=== PATIENT | female | born 1955 | race Caucasian/White ===

== ENCOUNTER 2017-05-20 15:04 | Inpatient (IN) | payer OTHER ==
[~2017-05-20] VITALS: Ht 165.1 cm; Wt 72.9 kg
[2017-05-20] MEDS ORDERED: ASPIRIN 325 MG TAB PO STA (16:26)
[2017-05-20 16:38] LABS: BASOPHIL # 0.1 10^3/ul (0.0-0.1); BASOPHILS % 0.7 % (0.0-2.0); EOSINOPHILS # 0.4 10^3/ul (0.0-0.5); EOSINOPHILS % 2.8 % (0.0-7.0); HEMATOCRIT 36.4 % (37.0-47.0); HEMOGLOBIN 12.3 g/dl (12.0-16.0); LYMPHOCYTES # 1.7 10^3/ul (0.8-2.9); LYMPHOCYTES % 12.9 % (15.0-51.0); MEAN CORPUSCULAR HEMOGLOBIN 32.6 pg (29.0-33.0); MEAN CORPUSCULAR HGB CONC 33.8 g/dl (32.0-37.0); MEAN CORPUSCULAR VOLUME 96.6 fl (82.0-101.0); MEAN PLATELET VOLUME 8.1 fl (7.4-10.4); MONOCYTE # 0.9 10^3/ul (0.3-0.9); MONOCYTES % 6.7 % (0.0-11.0); NEUTROPHIL # 10.3 10^3/ul (1.6-7.5); NEUTROPHILS % 76.6 % (39.0-77.0); PLATELET COUNT 496 10^3/UL (140-415); RED BLOOD COUNT 3.77 10^6/ul (4.20-5.40); WHITE BLOOD COUNT 13.4 10^3/ul (4.8-10.8)
--- NOTE | 2017-05-20 16:42 | RADRPT ---
PROCEDURE: XR Chest. CLINICAL INDICATION: Chest pain . TECHNIQUE: Single frontal chest x-ray. COMPARISON: None. FINDINGS: The lungs are clear of acute infiltrates, edema, effusions, or masses. Calcific atherosclerosis of t he aorta is present.. The cardiomediastinal silhouette is unremarkable. The osseous structures are intact. IMPRESSION: No acute cardiopulmonary disease. RPTAT: GG .Peng Ford MD, MD Date Time Electronically viewed and signed by .Peng Ford MD, on 05/20/2017 16:42 .L/
[2017-05-20] MEDS ORDERED: ONDANSETRON 4 MG INJ ONE (16:54)
[2017-05-20] MEDS ORDERED: ONDANSETRON 4 MG INJ IV STA ×2 (16:56→17:29)
[2017-05-20 16:59] LABS: ANION GAP 16 (8-16); BLOOD UREA NITROGEN 23 mg/dl (7-20); CALCIUM 10.3 mg/dl (8.4-10.2); CARBON DIOXIDE 23 mmol/L (21-31); CHLORIDE 103 mmol/L (97-110); CREATININE 0.85 mg/dl (0.44-1.00); GLUCOSE 85 mg/dl (70-220); POTASSIUM 4.4 mmol/L (3.5-5.1); SODIUM 138 mmol/L (135-144)
[2017-05-20 17:11] LABS: B-TYPE NATRIURETIC PEPTIDE 81 PG/ML (0-125)
[2017-05-20] MEDS ORDERED: NITROGLYCERIN 2% 1 GM OINT PKT TD STA (17:29)
[2017-05-20] MEDS ORDERED: HYDROmorphONE 1 MG/ML SYG IV STA (17:29)
[2017-05-20 17:31] LABS: TROPONIN-I < 0.012 ng/ml (0.00-0.12)
--- NOTE | 2017-05-20 19:36 | ERA ---
ER Documentation Chief Complaint Date/Time DATE: 05/20/17 TIME: 19:33 Chief Complaint Complains of chest pain radiates to the back HPI This is a 62-year-old is complaining of chest pain off and on for the past week that seems to be getting worse and more frequent and strong. Patient states she is having substernal chest pressure that radiates to the back that causes nausea and vomiting. No shortness of breath but does have palpitations. No syncope patient states she thinks she has high cholesterol but no diabetes or blood pressure problems. Currently her pain is mild. ROS All systems reviewed and are negative except as per history of present illness. Allergies Allergies: Coded Allergies: No Known Allergy (Unverified , 05/20/17) PMhx/Soc Medical and Surgical Hx: pt denies Medical Hx History of Surgery: Yes (left breast lumpectomy) Anesthesia Reaction: No Hx Alcohol Use: No Hx Substance Use: No Hx Tobacco Use: Yes (6cig/day) Smoking Status: Light tobacco smoker FmHx Family History: No coronary disease Physical Exam Vitals Vital Signs Date Time Temp Pulse Resp B/P Pulse Ox O2 Delivery O2 Flow Rate FiO2 05/20/17 16:29 98.3 87 20 145/82 99 Room Air 05/20/17 16:29 Nasal Cannula 2 05/20/17 15:07 98.3 110 20 138/64 96 Physical Exam Const: Well-developed, well-nourished Head: Atraumatic, normocephalic Eyes: Normal Conjunctiva, PERRLA, EOMI, normal sclera, no nystagmus ENT: Normal External Ears, Nose and Mouth, moist mucus membranes. Neck: Full range of motion. No meningismus, no lymphadenopathy. Resp: Clear to auscultation bilaterally, no wheezing, rhonchi, rales Cardio: Regular rate and rhythm, no murmurs, S1 S2 present Abd: Soft, non tender x 4, non distended. Normal bowel sounds, no guarding or rebound, no pulsitile abdominal masses or bruits Skin: No petechiae or rashes, no ecchymosis , no maculopapular rash Back: No midline or flank tenderness Ext: No cyanosis, or edema, FROM x 4, normal inspection, neurovascularly intact x 4 Neur: Awake and alert, STR 5/5 x 4, sensation intact x 4, no focal findings, cerebellum intact Psych: Normal Mood and Affect Result Diagram: 05/20/17 1627 05/20/17 1627 Results 24 hrs Laboratory Tests Test 05/20/17 16:27 White Blood Count 13.410^3/ul Red Blood Count 3.7710^6/ul Hemoglobin 12.3g/dl Hematocrit 36.4% Mean Corpuscular Volume 96.6fl Mean Corpuscular Hemoglobin 32.6pg Mean Corpuscular Hemoglobin Concent 33.8g/dl Red Cell Distribution Width 13.0% Platelet Count 43955^3/UL Mean Platelet Volume 8.1fl Neutrophils % 76.6% Lymphocytes % 12.9% Monocytes % 6.7% Eosinophils % 2.8% Basophils % 0.7% Nucleated Red Blood Cells % 0.0/100WBC Neutrophils # 10.310^3/ul Lymphocytes # 1.710^3/ul Monocytes # 0.910^3/ul Eosinophils # 0.410^3/ul Basophils # 0.110^3/ul Nucleated Red Blood Cells # 0.010^3/ul Sodium Level 138mmol/L Potassium Level 4.4mmol/L Chloride Level 103mmol/L Carbon Dioxide Level 23mmol/L Anion Gap 16 Blood Urea Nitrogen 23mg/dl Creatinine 0.85mg/dl Glucose Level 85mg/dl Calcium Level 10.3mg/dl Troponin I < 0.012ng/ml B-Type Natriuretic Peptide 81PG/ML Current Medications Medications (Trade) Dose Ordered Sig/Sarah Route PRN Reason Start Time Stop Time Status Last Admin Dose Admin Aspirin (Aspirin) 325 mg ONCE STAT PO 05/20/17 16:26 05/20/17 16:27 DC Ondansetron HCl (Zofran Inj) 4 mg STK-MED ONCE .ROUTE 05/20/17 16:54 05/20/17 16:55 DC Ondansetron HCl (Zofran Inj) 4 mg ONCE STAT IV 05/20/17 16:56 05/20/17 16:58 DC 05/20/17 17:07 Nitroglycerin (Nitroglycerin 2% Oint) 1 inch ONCE STAT TD 05/20/17 17:29 05/20/17 17:30 DC 05/20/17 17:47 Hydromorphone HCl (Dilaudid) 1 mg ONCE STAT IV 05/20/17 17:29 05/20/17 17:30 DC 05/20/17 17:45 Ondansetron HCl (Zofran Inj) 4 mg ONCE STAT IV 05/20/17 17:29 05/20/17 17:30 DC 05/20/17 17:54 Procedures/MDM EKG: Rate/Rhythm: Sinus tachycardia QRS, ST, QT: NORMAL [place], QRS, QT] Impression: Sinus tachycardia PROCEDURE: XR Chest. CLINICAL INDICATION: Chest pain . TECHNIQUE: Single frontal chest x-ray. COMPARISON: None. FINDINGS: The lungs are clear of acute infiltrates, edema, effusions, or masses. Calcific atherosclerosis of the aorta is present.. The cardiomediastinal silhouette is unremarkable. The osseous structures are intact. IMPRESSION: No acute cardiopulmonary disease. RPTAT: GG .Peng Ford MD, Date Time Electronically viewed and signed by .Peng Ford MD, on 05/20/2017 16:42 .L/ CC: ARELI PADILLA DO Patient's symptoms are concerning for cardiac cause will require inpatient workup and continuous monitoring. Further w/u for ischemia, arrhythmia, PE or dissection will be deferred to the inpatient team. Accepting Care Team: Current data and ongoing care discussed. Time: Time of admission Primary Provider: [XOXOXO] Consulting: [XOXOXO] Outstanding Data: none Departure Diagnosis: Primary Impression: Chest pain Qualified Code: R07.9 - Chest pain, unspecified type Condition: Stable SANDER CASTILLO DO May 20, 2017 19:35
[2017-05-20] MEDS ORDERED: ACETAMINOPHEN 325 MG TAB PO PRN (20:30)
[2017-05-20] MEDS ORDERED: ONDANSETRON 4 MG INJ IV PRN (20:30)
[2017-05-20 21:04] VITALS: TEMP 98.1
[2017-05-20 21:42] VITALS: BP 138/70; PULSE 81; RESP 19
[2017-05-20 21:49] VITALS: Ht 165.1 cm; Wt 72.9 kg
[2017-05-20 22:02] VITALS: PULSE 67
[2017-05-20] MEDS: FAMOTIDINE 20 MG INJ IV SCH ×2 (22:30→22:52)
[2017-05-20] MEDS: ONDANSETRON 4 MG INJ IV PRN (22:40)
[2017-05-20] MEDS: HYDROmorphONE 0.5 MG/0.5 ML SYG IV PRN (22:43)
[2017-05-20] MEDS ORDERED: NITROGLYCERIN (SL) 0.4 MG TAB ONE (22:44)
[2017-05-20] MEDS: NITROGLYCERIN (SL) 0.4 MG TAB SL PRN ×2 (22:51→23:01)
[2017-05-20 22:52] VITALS: BP 142/72; PULSE 77
[2017-05-20 22:56] LABS: CREATINE KINASE 57 IU/L (23-200)
[2017-05-20 23:01] VITALS: BP 130/69
[2017-05-20 23:09] LABS: CK-MB 0.72 ng/ml (0.0-2.4)
[2017-05-20 23:10] LABS: TROPONIN-I < 0.012 ng/ml (0.00-0.12)
[2017-05-20 23:11] VITALS: BP 122/69; PULSE 94; RESP 20
[2017-05-21] VITALS (11 sets, daily range): BP systolic 102–138; BP diastolic 52–60; PULSE 62–82; RESP 17–19
[2017-05-21] MEDS ORDERED: METOPROLOL 25 MG TAB GTB SCH (00:30)
[2017-05-21] MEDS: HYDROmorphONE 0.5 MG/0.5 ML SYG IV PRN ×2 (04:05→19:52)
[2017-05-21] MEDS: FAMOTIDINE 20 MG INJ IV SCH ×2 (04:06→09:11)
[2017-05-21] MEDS: ONDANSETRON 4 MG INJ IV PRN ×2 (04:43→19:52)
--- NOTE | 2017-05-21 07:26 | HP ---
Date/Time of Note Date/Time of Note DATE: 05/21/17 TIME: 07:18 Assessment/Plan VTE Prophylaxis VTE Prophylaxis Intervention: heparin Lines/Catheters IV Catheter Type (from [facility]): Saline Lock Urinary Cath still in place: No Assessment/Plan Assessment/Plan 1. Chest pain, rule out ACS -Continue telemetry monitoring -Supplemental oxygen, aspirin, beta-rae with as needed nitro and morphine -Trend troponin -2D echo and cardiology consult 2. Vomiting -Will order KUB -Antiemetics -Additional workup as needed 3. Leukocytosis: Likely reactive -Will check urinalysis -Check a.m. lab 4. History of PUD -PPI HPI/ROS Admit Date/Time Admit Date/Time May 20, 2017 at 20:10 Hx of Present Illness This is a 62-year-old female with a history of depression, PUD, chronic chest pain and lumpectomy who presented to the emergency department complaining of chest pain 1 week. Pain is mainly localized in the mid chest with radiation to her back. She reported associated nonbilious nonbloody vomiting. Denied shortness of breath, fever chills or diaphoresis. She said that she has been using heat pack to her chest to help with the pain and as a result she has developed some blistering to her breasts. As I was leaving the room, she said she had pessary for bladder prolapse 14 years ago and now, she feels her "bladder moving". She said at times, it has been difficult to urinate unless she "moves her bladder by hand". When she presented to the ER, she was tachycardic with heart rate of 110 otherwise the rest of the vitals were stable. EKG was no ST-T wave abnormality and the first troponin is negative. Labs shows a WBC of 13.4 calcium of 10.4 otherwise CBC and a CMP within acceptable range. Chest x-ray with no active cardiopulmonary disease. PMH/Family/Social Social History Smoking Status: Light tobacco smoker Exam/Review of Systems Vital Signs Vitals Vital Signs Date Time Temp Pulse Resp B/P Pulse Ox O2 Delivery O2 Flow Rate FiO2 05/21/17 04:07 70 05/21/17 03:59 98.1 19 113/55 97 05/20/17 23:11 Nasal Cannula 2.0 Intake and Output 05/20/17 05/20/17 05/21/17 15:00 23:00 07:00 Intake Total 200 ml Balance 200 ml Exam Constitutional: alert, oriented, well developed Head: atraumatic, normocephalic Eyes: EOMI, PERRL Respiratory: clear to auscultation, normal air movement Cardiovascular: nl pulses, regular rate and rhythm Extremities: normal pulses Labs Result Diagram: 05/20/17 1627 05/20/17 1627 Medications Medications Current Medications Ondansetron HCl (Zofran Inj) 4 mg Q6H PRN IV NAUSEA AND/OR VOMITING Last administered on 05/21/17 04:43; Admin Dose 4 MG; Start 05/20/17 at 22:30 Hydromorphone HCl (Dilaudid) 0.5 mg Q4H PRN IV PAIN Last administered on 04:05; Admin Dose 0.5 MG; Start 05/20/17 at 22:30 Famotidine (Pepcid Iv) 20 mg BID IV Last administered on 05/21/17 04:06; Admin Dose 20 MG; Start 05/20/17 at 22:30 Nitroglycerin (Nitroglycerin (Sl Tab) 0.4 Mg) 1 tab Q5M PRN SL ANGINA Last administered on 05/20/17 23:01; Admin Dose 1 TAB; Start 05/20/17 at 23:00 Enoxaparin Sodium (Lovenox) 40 mg DAILY SC ; Start 05/21/17 at 09:00 Aspirin (Aspirin) 81 mg DAILY PO ; Start 05/21/17 at 09:00 Influenza Virus Vaccine (Fluzone) 0.5 ml ONCE ONCE IM* ; Start 05/22/17 at 09: 00; Stop 05/22/17 at 09:01 Metoprolol Tartrate (Lopressor) 25 mg BID PO ; Start 05/21/17 at 09:00 MUNDO KAPLAN MD May 21, 2017 07:26
[2017-05-21 08:19] LABS: BASOPHIL # 0.1 10^3/ul (0.0-0.1); BASOPHILS % 0.6 % (0.0-2.0); EOSINOPHILS # 0.4 10^3/ul (0.0-0.5); EOSINOPHILS % 3.4 % (0.0-7.0); HEMATOCRIT 35.6 % (37.0-47.0); HEMOGLOBIN 11.4 g/dl (12.0-16.0); LYMPHOCYTES # 1.6 10^3/ul (0.8-2.9); MEAN CORPUSCULAR HEMOGLOBIN 31.8 pg (29.0-33.0); MEAN CORPUSCULAR VOLUME 99.4 fl (82.0-101.0); MEAN PLATELET VOLUME 8.3 fl (7.4-10.4); MONOCYTE # 0.8 10^3/ul (0.3-0.9); MONOCYTES % 7.2 % (0.0-11.0); NEUTROPHIL # 8.3 10^3/ul (1.6-7.5); NEUTROPHILS % 74.4 % (39.0-77.0); PLATELET COUNT 437 10^3/UL (140-415); RED BLOOD COUNT 3.58 10^6/ul (4.20-5.40); RED CELL DISTRIBUTION WIDTH 12.9 % (11.5-14.5); WHITE BLOOD COUNT 11.1 10^3/ul (4.8-10.8)
[2017-05-21 08:48] LABS: CREATINE KINASE 46 IU/L (23-200)
[2017-05-21 08:55] LABS: ALBUMIN 3.8 g/dl (3.3-4.9); ALBUMIN/GLOBULIN RATIO 1.05; CALCIUM 9.8 mg/dl (8.4-10.2); CHOL/HDL RATIO 5.9 RATIO; CK-MB 0.69 ng/ml (0.0-2.4); CREATININE 0.76 mg/dl (0.44-1.00); MAGNESIUM 1.7 mg/dl (1.7-2.5); PHOSPHORUS 4.2 mg/dl (2.5-4.9); POTASSIUM 4.3 mmol/L (3.5-5.1); TOTAL PROTEIN 7.4 g/dl (6.1-8.1)
[2017-05-21 08:57] LABS: TROPONIN-I < 0.012 ng/ml (0.00-0.12)
[2017-05-21] MEDS ORDERED: BARIUM SULF 2% 450 ML BTL (BERRY SMOOTHIE) PO ONE (09:00)
[2017-05-21] MEDS: METOPROLOL 25 MG TAB PO SCH ×2 (09:10→20:17)
[2017-05-21] MEDS: ENOXAPARIN 40 MG/0.4 ML SYG SC SCH (09:12)
[2017-05-21] MEDS: ASPIRIN 81 MG TAB PO SCH (09:13)
[2017-05-21 09:15] LABS: THYROID STIMULATING HORMONE 1.9 MIU/L (0.465-4.680)
[2017-05-21 13:41] LABS: ADD UMIC YES; UR ASCORBIC ACID NEGATIVE (NEGATIVE); UR BACTERIA FEW /HPF (NONE SEEN); UR BILIRUBIN (Dip) NEGATIVE (NEGATIVE); UR BLOOD (Dip) 2+ mg/dL (NEGATIVE); UR CLARITY CLOUDY (CLEAR); UR COLOR YELLOW (YELLOW); UR GLUCOSE (Dip) NEGATIVE (NEGATIVE); UR KETONES (Dip) NEGATIVE (NEGATIVE); UR LEUKOCYTE ESTERASE (Dip) 3+ Leu/ul (NEGATIVE); UR NITRITE (Dip) NEGATIVE (NEGATIVE); UR RBC 0 /HPF (0-5); UR SPECIFIC GRAVITY (Dip) 1.013 (1.003-1.030); UR SQUAMOUS EPITHELIAL CELL FEW /HPF (FEW); UR TOTAL PROTEIN (Dip) NEGATIVE (NEGATIVE); UR UROBILINOGEN (Dip) NEGATIVE (NEGATIVE)
--- NOTE | 2017-05-21 14:00 | CONS ---
Date/Time of Note Date/Time of Note DATE: 05/21/17 TIME: 13:59 Assessment/Plan Assessment/Plan Additional Assessment/Plan Stress test tomorrow Full note dictated # [id number] thank you Consultation Date/Type/Reason Admit Date/Time May 21, 2017 at 11:05 Initial Consult Date Exam/Review of Systems Vital Signs Vitals Vital Signs Date Time Temp Pulse Resp B/P Pulse Ox O2 Delivery O2 Flow Rate FiO2 05/21/17 12:00 82 05/21/17 11:44 97.2 17 126/60 98 05/21/17 08:14 Nasal Cannula 2.0 Intake and Output 05/20/17 05/20/17 05/21/17 15:00 23:00 07:00 Intake Total 200 ml Balance 200 ml Results Result Diagram: 05/21/17 0704 05/21/17 0704 Results 24 hrs Laboratory Tests Test 05/20/17 16:27 05/20/17 22:17 05/21/17 07:04 05/21/17 12:20 White Blood Count 13.4 H 11.1 H Red Blood Count 3.77 L 3.58 L Hemoglobin 12.3 11.4 L Hematocrit 36.4 L 35.6 L Mean Corpuscular Volume 96.6 99.4 Mean Corpuscular Hemoglobin 32.6 31.8 Mean Corpuscular Hemoglobin Concent 33.8 32.0 Red Cell Distribution Width 13.0 12.9 Platelet Count 496 H 437 H Mean Platelet Volume 8.1 8.3 Neutrophils % 76.6 74.4 Lymphocytes % 12.9 L 14.0 L Monocytes % 6.7 7.2 Eosinophils % 2.8 3.4 Basophils % 0.7 0.6 Nucleated Red Blood Cells % 0.0 0.0 Neutrophils # 10.3 H 8.3 H Lymphocytes # 1.7 1.6 Monocytes # 0.9 0.8 Eosinophils # 0.4 0.4 Basophils # 0.1 0.1 Nucleated Red Blood Cells # 0.0 0.0 Sodium Level 138 132 L Potassium Level 4.4 4.3 Chloride Level 103 105 Carbon Dioxide Level 23 27 Anion Gap 16 4 #L Blood Urea Nitrogen 23 H 20 Creatinine 0.85 0.76 Glucose Level 85 85 Calcium Level 10.3 H 9.8 Troponin I < 0.012 < 0.012 < 0.012 B-Type Natriuretic Peptide 81 Creatine Kinase 57 46 Creatine Kinase Index 1.3 1.5 Creatinine Kinase MB (Mass) 0.72 0.69 Hemoglobin A1c 5.4 Phosphorus Level 4.2 Magnesium Level 1.7 Total Bilirubin 0.0 L Direct Bilirubin 0.00 Indirect Bilirubin 0.0 Aspartate Amino Transf (AST/SGOT) 19 Alanine Aminotransferase (ALT/SGPT) 23 Alkaline Phosphatase 85 Total Protein 7.4 Albumin 3.8 Globulin 3.60 H Albumin/Globulin Ratio 1.05 Triglycerides Level 194 H Cholesterol Level 185 LDL Cholesterol, Calculated 115 HDL Cholesterol 31 L Cholesterol/HDL Ratio 5.9 Thyroid Stimulating Hormone (TSH) 1.900 Urine Color YELLOW Urine Clarity CLOUDY A Urine pH 5.0 Urine Specific Martin 1.013 Urine Ketones NEGATIVE Urine Nitrite NEGATIVE Urine Bilirubin NEGATIVE Urine Urobilinogen NEGATIVE Urine Leukocyte Esterase 3+ H Urine Microscopic RBC 0 Urine Microscopic WBC > 182 H Urine Squamous Epithelial Cells FEW Urine Bacteria FEW A Urine Hemoglobin 2+ H Urine Glucose NEGATIVE Urine Total Protein NEGATIVE Medications Medications Current Medications Ondansetron HCl (Zofran Inj) 4 mg Q6H PRN IV NAUSEA AND/OR VOMITING Last administered on 05/21/17 04:43; Admin Dose 4 MG; Start 05/20/17 at 22:30 Hydromorphone HCl (Dilaudid) 0.5 mg Q4H PRN IV PAIN Last administered on 04:05; Admin Dose 0.5 MG; Start 05/20/17 at 22:30 Famotidine (Pepcid Iv) 20 mg BID IV Last administered on 05/21/17 09:11; Admin Dose 20 MG; Start 05/20/17 at 22:30 Nitroglycerin (Nitroglycerin (Sl Tab) 0.4 Mg) 1 tab Q5M PRN SL ANGINA Last administered on 05/20/17 23:01; Admin Dose 1 TAB; Start 05/20/17 at 23:00 Enoxaparin Sodium (Lovenox) 40 mg DAILY SC Last administered on 05/21/17 09: 12; Admin Dose 40 MG; Start 05/21/17 at 09:00 Aspirin (Aspirin) 81 mg DAILY PO Last administered on 05/21/17 09:13; Admin Dose 81 MG; Start 05/21/17 at 09:00 Influenza Virus Vaccine (Fluzone) 0.5 ml ONCE ONCE IM* ; Start 05/22/17 at 09: 00; Stop 05/22/17 at 09:01 Metoprolol Tartrate (Lopressor) 25 mg BID PO Last administered on 05/21/17t 09 :10; Admin Dose 25 MG; Start 05/21/17 at 09:00 Magnesium Oxide (Mag-Ox 400) 400 mg BID PO ; Start 05/21/17 at 15:00 LORRAINE MULLIGAN MD May 21, 2017 14:00
[2017-05-21] MEDS: MAGNESIUM OXIDE 400 MG TAB PO SCH ×2 (15:00→20:07)
[2017-05-21] MEDS ORDERED: SOD CHLORIDE 0.9% 100 ML ONE (16:58)
[2017-05-21] MEDS ORDERED: IODIXANOL LOCM 100 ML BTL ONE (16:58)
--- NOTE | 2017-05-21 18:00 | RADRPT ---
PROCEDURE: CT chest angiography. CLINICAL INDICATION: Chest pain. Possible aortic dissection. TECHNIQUE: CT angiography of the chest was performed after the uneventful intravenous administratio n of 90 cc of Visipaque 320. Coronal and sagittal reformations were performed. 3-D/multiplanar ref ormations were performed by the technologist and an independent workstation. The total exam CTDI = 2 5.35, 10.10 mGy and the DLP equals 400.29 mGy-cm. One or more of the following dose reduction techniques were used: - Automated exposure control. - Adjustment of the mA and/or kV according to patient size. - Use of iterative reconstruction technique. COMPARISON: Chest x-ray dated 05/20/2017. VASCULAR FINDINGS: There is atherosclerotic disease of the aorta with scattered areas of intramural hematoma. There is no aortic aneurysm or dissection. There is a normal three-vessel configuration o f the aortic arch. The great vessels and visualized portions of the subclavian, vertebral, and commo n carotid arteries are widely patent. There are multivessel coronary artery calcifications. There is acute angulation of the celiac artery takeoff with associated high-grade narrowing and post stenoti c dilatation of the proximal vessel, suggestive of a median arcuate ligament. The remaining visualiz ed portions of the celiac artery and its branch vessels are widely patent. The visualized portions o f the SMA and single bilateral renal arteries are also widely patent. There are no emboli through th e level of the subsegmental pulmonary arteries. NONVASCULAR FINDINGS: Lungs, pleura, airways, and thoracic inlet: There is mild centrilobular and paraseptal emphysema wi thin the lungs. There is bibasilar subsegmental atelectasis versus scarring without focal consolidat ion, effusion, or pneumothorax. There are no concerning pulmonary nodules or masses. The tracheobron chial tree is patent and normal in course and caliber. Mediastinum and lymphatics: The heart is normal in size without pericardial thickening or effusion. There is no axillary, hilar, or mediastinal adenopathy. Visualized upper abdomen: There is a benign 1.7 cm right adrenal adenoma. There is a focal defect of the gastric mucosa along the greater curvature of the gastric body and associated mild outpouching measuring approximate 2.5 x 1.8 cm with surrounding inflammatory change in the adjacent mesenteric f at, suspicious for a penetrating ulcer. There is diverticulosis of the visualized colon. Musculoskeletal system and soft tissues: There is mild to moderate multilevel degenerative spondylo sis. There are no concerning osseous lesions. The soft tissues are unremarkable. IMPRESSION: 1. Atherosclerotic changes of the aorta with scattered intramural hematoma, but no aortic aneurysm or dissection. 2. Acute angulation of the celiac artery takeoff with associated high-grade narrowing and post sten otic dilatation of the proximal vessel, suggestive of a median arcuate ligament. 3. Focal defect of the gastric mucosa along the greater curvature of the gastric body with associat ed mild outpouching and inflammatory change in the adjacent mesenteric fat, suspicious for a penetra ting ulcer. Upper endoscopy versus upper GI series is recommended for further evaluation. 4. Mild centrilobular and paraseptal emphysema. 5. Multivessel coronary artery calcifications. 6. Benign 1.7 cm right adrenal adenoma. 7. Colonic diverticulosis. These findings discussed with the patient's nurse Hallie Hayes at 1757 hours on 05/21/2017. RPTAT: HLBP .Chet Mckeon MD, MD Date Time Electronically viewed and signed by .Chet Mckeon MD, MD on 05/21/2017 17:59 .P/
--- NOTE | 2017-05-21 18:01 | RADRPT ---
PROCEDURE: XR Abdomen. CLINICAL INDICATION: Vomiting. TECHNIQUE: Single view of the abdomen is available for review. COMPARISON: None. FINDINGS: There is a nonobstructive bowel gas pattern. There are no abnormal calcifications overly ing the urinary tracts. There is degenerative enthesopathy in the lower lumbosacral spine. There are no acute osseous abnormalities. IMPRESSION: 1. Nonobstructive bowel gas pattern. RPTAT: HLBP .Chet Mckeon MD, MD Date Time Electronically viewed and signed by .Chet Mckeon MD, on 05/21/2017 18:01 .P/
--- NOTE | 2017-05-21 18:06 | RADRPT ---
PROCEDURE: CT Pelvis without contrast. CLINICAL INDICATION: Urinary bladder prolapse. TECHNIQUE: CT scan of the pelvis without contrast was performed on a multi-detector high resolution CT scanner. The patient was scanned without intravenous contrast. Coronal and sagittal reformatte d images were obtained from the axial source images. The total exam CTDI = 9.14 mGy and the DLP = 3 50 mGy-cm. One or more of the following dose reduction techniques were used: - Automated exposure control. - Adjustment of the mA and/or kV according to patient size. - Use of iterative reconstruction technique. COMPARISON: None available. FINDINGS: Genitourinary system: There is a small amount of contrast within the urinary bladder, consistent wi th recent intravenous injection. The urinary bladder lies above the pubococcygeal line with no evide nce of urinary bladder prolapse, and is otherwise unremarkable. The uterus is surgically absent and there is a ring pessary device in place. The visualized portions of the kidneys and opacified porti ons of the collecting systems are unremarkable. Gastrointestinal system: There is diverticulosis scattered throughout the visualized colon without evidence of diverticulitis. There is no bowel wall thickening or evidence of obstruction. The append ix is in the right lower quadrant and is unremarkable. Peritoneum, lymphatics, and cardiovascular system: There is no free intraperitoneal air or free flu id. There is no mesenteric, retroperitoneal, or pelvic adenopathy. There are atherosclerotic changes of the aorta, which is nonaneurysmal. There is a small fat containing umbilical hernia. Musculoskeletal system and soft tissues: There are no concerning osseous lesions. There is moderate to severe degenerative enthesopathy at L4-5 and L5-S1. There is subcutaneous emphysema within the l eft ventral subcutaneous fat. IMPRESSION: 1. Colonic diverticulosis without evidence of diverticulitis. 2. Postoperative change related to hysterectomy with a ring pessary device in place. Appropriate po sition of the urinary bladder above the pubococcygeal line without evidence of urinary bladder prola pse, as questioned. 3. Vascular calcifications consistent with atherosclerosis. 4. Nonspecific subcutaneous emphysema within the left ventral subcutaneous fat. No focal drainable collection in this region. 5. Small fat containing umbilical hernia. RPTAT: HLBP .Chet Mckeon MD, Date Time Electronically viewed and signed by .Chet Mckeon MD, MD on 05/21/2017 18:05 .P/
[2017-05-21] MEDS: NICOTINE (21 MG/24 HR) PATCH TRANSDERM SCH (19:30)
[2017-05-21] MEDS: FAMOTIDINE 20 MG TAB PO SCH (20:08)
[2017-05-21] MEDS: DIPHENHYDRAMINE 25 MG CAP PO PRN (22:19)
[2017-05-22] VITALS (11 sets, daily range): BP systolic 106–124; BP diastolic 53–72; PULSE 60–86; RESP 17–20
[2017-05-22 06:25] LABS: BASOPHIL # 0.1 10^3/ul (0.0-0.1); BASOPHILS % 0.8 % (0.0-2.0); EOSINOPHILS # 0.4 10^3/ul (0.0-0.5); EOSINOPHILS % 3.7 % (0.0-7.0); HEMATOCRIT 34.1 % (37.0-47.0); HEMOGLOBIN 11.1 g/dl (12.0-16.0); LYMPHOCYTES # 1.6 10^3/ul (0.8-2.9); LYMPHOCYTES % 16.8 % (15.0-51.0); MEAN CORPUSCULAR HEMOGLOBIN 32.4 pg (29.0-33.0); MEAN CORPUSCULAR HGB CONC 32.6 g/dl (32.0-37.0); MEAN CORPUSCULAR VOLUME 99.4 fl (82.0-101.0); MEAN PLATELET VOLUME 8.3 fl (7.4-10.4); MONOCYTE # 0.8 10^3/ul (0.3-0.9); MONOCYTES % 8.1 % (0.0-11.0); NEUTROPHIL # 6.7 10^3/ul (1.6-7.5); NEUTROPHILS % 70.2 % (39.0-77.0); PLATELET COUNT 414 10^3/UL (140-415); RED BLOOD COUNT 3.43 10^6/ul (4.20-5.40); RED CELL DISTRIBUTION WIDTH 12.8 % (11.5-14.5); WHITE BLOOD COUNT 9.5 10^3/ul (4.8-10.8)
[2017-05-22 07:17] LABS: CALCIUM 9.6 mg/dl (8.4-10.2); CREATININE 0.91 mg/dl (0.44-1.00); MAGNESIUM 1.9 mg/dl (1.7-2.5); POTASSIUM 4.4 mmol/L (3.5-5.1)
[2017-05-22] MEDS: ASPIRIN 81 MG TAB PO SCH (08:08)
[2017-05-22] MEDS: MAGNESIUM OXIDE 400 MG TAB PO SCH (08:13)
[2017-05-22] MEDS: FAMOTIDINE 20 MG TAB PO SCH (08:13)
[2017-05-22] MEDS: NICOTINE (21 MG/24 HR) PATCH TRANSDERM SCH (08:15)
[2017-05-22] MEDS: ENOXAPARIN 40 MG/0.4 ML SYG SC SCH (08:16)
[2017-05-22] MEDS: HYDROmorphONE 0.5 MG/0.5 ML SYG IV PRN ×3 (08:56→21:18)
[2017-05-22] MEDS: ONDANSETRON 4 MG INJ IV PRN ×2 (08:56→17:07)
[2017-05-22] MEDS ORDERED: INFLUENZA VIRUS VACCINE 0.5 ML (DISPENSING) IM* ONE (09:00)
[2017-05-22] MEDS: METOPROLOL 25 MG TAB PO SCH (09:00)
--- NOTE | 2017-05-22 11:00 | CONS ---
Date/Time of Note Date/Time of Note DATE: 05/22/17 TIME: 10:18 Assessment/Plan Assessment/Plan Chief Complaint/Hosp Course Summary Assessment and Plan: Assessment: Anemia Chest pain Vomiting Leukocytosis- improved Hx of PUD Hx of IBS Plan: EGD (once cleared by cardiology) Check for stool occult blood Stop H2 rae and start PPI Patient seen in collaboration with Dr. Almazan Endoscopy risks/benefits/alternatives/indications of procedure and sedation/ anesthesia discussed with patient who states understanding and gives informed consent to proceed. Questions were answered. Chief Complaint/Reason for Visit: Abnormal finding on Ct scan Suspicious for a penetrating ulcer, gastric body History of Present illness: This is 62 year old female with history of IBS, depression, GERD, and PUD about 8 years ago. She presented to the ER with chest pain, vomiting, fever, and chills. WBC were initially elevated and have come down to normal range. She is currently mildly anemic HGB 11.1 HCT 34.1 MCV 99.4 MCH 32.4. LFT's normal. Troponin negative x2. CT scan chest/thorax revealed inflammatory changes at the greater curvature of gastric body suspicious for penetrating ulcer. Currently c/ o epigastric pain, nausea, pyrosis and rare blood in stool. Denies hematemesis, change in bowel habits, or unintentional weight loss. She has not been taking PPI for some time due to cost. History was obtained for patient and medical records. Past Medical History: As described in HPI Allergies: No know drug allergies Family History: No pertinent Social History: Denies ETOH Denies drug use Current daily smoker Problems: Consultation Date/Type/Reason Admit Date/Time May 21, 2017 at 11:05 Date of Consultation: May 22, 2017 Type of Consultation: GI Eyes: no complaints ENT: no complaints Cardiovascular: no complaints Gastrointestinal: blood, nausea, pain, No decreased appetite, No diarrhea Musculoskeletal: neck pain Skin: no complaints Neurologic: headache Psychological: anxiety Past Medical History Chronic chest pain depression Medical History: irritable bowel syndrome, peptic ulcer disease Past Surgical History Past Surgical Hx: endoscopy, other (Hysterectomy- pessary device ) Family History Significant Family History: no pertinent family hx Social History Alcohol Use: none Smoking Status: Current every day smoker Drug Use: none Exam/Review of Systems Vital Signs Vitals Vital Signs Date Time Temp Pulse Resp B/P Pulse Ox O2 Delivery O2 Flow Rate FiO2 05/22/17 08:32 64 05/22/17 08:14 97.5 17 106/55 93 05/22/17 04:31 Room Air 05/21/17 08:14 2.0 Intake and Output 05/21/17 05/21/17 05/22/17 15:00 23:00 07:00 Intake Total 950 ml 300 ml Balance 950 ml 300 ml Exam Constitutional: alert, oriented Head: atraumatic, normocephalic Eyes: EOMI, PERRL, nl conjunctiva, nl lids, nl sclera ENMT: nl external ears & nose, nl lips & teeth, nl nasal mucosa & septum Neck: non-tender, supple Respiratory: clear to auscultation Cardiovascular: regular rate and rhythm Gastrointestinal: bowel sounds, other, soft, tender, No ascites, No distended, No firm, No hepatomegaly, No mass, No splenomegaly , No surgical scars Genitourinary - Female: nl external genitalia Musculoskeletal: nl extremities to inspection Extremities: normal pulses Skin: nl turgor, No diaphoresis, No laceration Results Result Diagram: 05/22/17 0540 05/22/17 0540 Results 24 hrs Laboratory Tests Test 05/21/17 12:20 05/22/17 05:40 Urine Color YELLOW Urine Clarity CLOUDY A Urine pH 5.0 Urine Specific [place] 1.013 Urine Ketones NEGATIVE Urine Nitrite NEGATIVE Urine Bilirubin NEGATIVE Urine Urobilinogen NEGATIVE Urine Leukocyte Esterase 3+ H Urine Microscopic RBC 0 Urine Microscopic WBC > 182 H Urine Squamous Epithelial Cells FEW Urine Bacteria FEW A Urine Hemoglobin 2+ H Urine Glucose NEGATIVE Urine Total Protein NEGATIVE White Blood Count 9.5 Red Blood Count 3.43 L Hemoglobin 11.1 L Hematocrit 34.1 L Mean Corpuscular Volume 99.4 Mean Corpuscular Hemoglobin 32.4 Mean Corpuscular Hemoglobin Concent 32.6 Red Cell Distribution Width 12.8 Platelet Count 414 Mean Platelet Volume 8.3 Neutrophils % 70.2 Lymphocytes % 16.8 Monocytes % 8.1 Eosinophils % 3.7 Basophils % 0.8 Nucleated Red Blood Cells % 0.0 Neutrophils # 6.7 Lymphocytes # 1.6 Monocytes # 0.8 Eosinophils # 0.4 Basophils # 0.1 Nucleated Red Blood Cells # 0.0 Sodium Level 140 Potassium Level 4.4 Chloride Level 105 Carbon Dioxide Level 27 Anion Gap 12 Blood Urea Nitrogen 24 H Creatinine 0.91 Glucose Level 84 Calcium Level 9.6 Magnesium Level 1.9 Medications Medications Current Medications Ondansetron HCl (Zofran Inj) 4 mg Q6H PRN IV NAUSEA AND/OR VOMITING Last administered on 05/22/17 08:56; Admin Dose 4 MG; Start 05/20/17 at 22:30 Hydromorphone HCl (Dilaudid) 0.5 mg Q4H PRN IV PAIN Last administered on 08:56; Admin Dose 0.5 MG; Start 05/20/17 at 22:30 Nitroglycerin (Nitroglycerin (Sl Tab) 0.4 Mg) 1 tab Q5M PRN SL ANGINA Last administered on 05/20/17 23:01; Admin Dose 1 TAB; Start 05/20/17 at 23:00 Enoxaparin Sodium (Lovenox) 40 mg DAILY SC Last administered on 05/22/17 08: 16; Admin Dose 40 MG; Start 05/21/17 at 09:00 Aspirin (Aspirin) 81 mg DAILY PO Last administered on 05/22/17 08:08; Admin Dose 81 MG; Start 05/21/17 at 09:00 Metoprolol Tartrate (Lopressor) 25 mg BID PO Last administered on 05/21/17 20 :17; Admin Dose 25 MG; Start 05/21/17 at 09:00 Magnesium Oxide (Mag-Ox 400) 400 mg BID PO Last administered on 05/22/17 08: 13; Admin Dose 400 MG; Start 05/21/17 at 15:00 Famotidine (Pepcid) 20 mg BID PO Last administered on 05/22/17 08:13; Admin Dose 20 MG; Start 05/21/17 at 21:00 Nicotine (Nicoderm 21 Mg/ 24hr) 1 patch DAILY TRANSDERM ; Start 05/21/17 at 19: 30 Diphenhydramine HCl (Benadryl) 25 mg Q6H PRN PO ITCHING Last administered on 22:19; Admin Dose 25 MG; Start 05/21/17 at 22:00 Copies To: CC: ANGELLA ALMAZAN MD, VICTORIA May 22, 2017 10:28
[2017-05-22] MEDS ORDERED: traMADol 50 MG TAB PO PRN (12:00)
[2017-05-22] MEDS ORDERED: IBUPROFEN 600 MG TAB PO PRN (12:00)
[2017-05-22] MEDS ORDERED: REGADENOSON 0.4 MG/5 ML SYG ONE (12:30)
--- NOTE | 2017-05-22 14:12 | CONS ---
Date/Time of Note Date/Time of Note DATE: 05/22/17 TIME: 14:10 Assessment/Plan Assessment/Plan Additional Assessment/Plan 1. CP - plan for stress test today. 2. HTN - well Rx ill monitor clinically. 3. Abn ECG - r/o NH, doubt ischemia. 4. Likely COPD - rx as needed, d/c tobacco advised. 5. SOB - better now, will eval post SPECT results. Consultation Date/Type/Reason Admit Date/Time May 21, 2017 at 11:05 Type of Consultation: GI 24 HR Interval Summary Free Text/Dictation NO acute events - BP in good range - SPECT DONE - will await results. ROS: No fever, no chills, no nausea, no vomiting, no diarrhea/constipation No recent weight changes No chest pain, no PND, no orthopnea +SOB No dizziness, blurred vision No thirst, no heat or cold intolerance Exam/Review of Systems Vital Signs Vitals Vital Signs Date Time Temp Pulse Resp B/P Pulse Ox O2 Delivery O2 Flow Rate FiO2 05/22/17 12:31 67 05/22/17 12:06 98.1 18 112/62 94 05/22/17 04:31 Room Air 05/21/17 08:14 2.0 Intake and Output 05/21/17 05/21/17 05/22/17 15:00 23:00 07:00 Intake Total 950 ml 300 ml Balance 950 ml 300 ml Exam General: WN/WD/NAD, AOx 3 HEENT: Unicetric/atraumatic/EOMI (follows commands) NECK: JVD elevated, no thyromegaly Lymph: no lymphadenopathy HEART: regular with no S3, II/ systolic murmur at apex LUNGS: Coarse sounds ABD: soft, NT, ND, +BS : Intact Neuro: non focal SKIN: chronic changes EXT: trace edema Results Result Diagram: 05/22/17 0540 05/22/17 0540 Results 24 hrs Laboratory Tests Test 05/22/17 05:40 White Blood Count 9.5 Red Blood Count 3.43 L Hemoglobin 11.1 L Hematocrit 34.1 L Mean Corpuscular Volume 99.4 Mean Corpuscular Hemoglobin 32.4 Mean Corpuscular Hemoglobin Concent 32.6 Red Cell Distribution Width 12.8 Platelet Count 414 Mean Platelet Volume 8.3 Neutrophils % 70.2 Lymphocytes % 16.8 Monocytes % 8.1 Eosinophils % 3.7 Basophils % 0.8 Nucleated Red Blood Cells % 0.0 Neutrophils # 6.7 Lymphocytes # 1.6 Monocytes # 0.8 Eosinophils # 0.4 Basophils # 0.1 Nucleated Red Blood Cells # 0.0 Sodium Level 140 Potassium Level 4.4 Chloride Level 105 Carbon Dioxide Level 27 Anion Gap 12 Blood Urea Nitrogen 24 H Creatinine 0.91 Glucose Level 84 Calcium Level 9.6 Magnesium Level 1.9 Medications Medications Current Medications Ondansetron HCl (Zofran Inj) 4 mg Q6H PRN IV NAUSEA AND/OR VOMITING Last administered on 05/22/17 08:56; Admin Dose 4 MG; Start 05/20/17 at 22:30 Hydromorphone HCl (Dilaudid) 0.5 mg Q4H PRN IV PAIN Last administered on 08:56; Admin Dose 0.5 MG; Start 05/20/17 at 22:30 Nitroglycerin (Nitroglycerin (Sl Tab) 0.4 Mg) 1 tab Q5M PRN SL ANGINA Last administered on 05/20/17 23:01; Admin Dose 1 TAB; Start 05/20/17 at 23:00 Enoxaparin Sodium (Lovenox) 40 mg DAILY SC Last administered on 05/22/17 08: 16; Admin Dose 40 MG; Start 05/21/17 at 09:00 Aspirin (Aspirin) 81 mg DAILY PO Last administered on 05/22/17 08:08; Admin Dose 81 MG; Start 05/21/17 at 09:00 Metoprolol Tartrate (Lopressor) 25 mg BID PO Last administered on 05/21/17 20 :17; Admin Dose 25 MG; Start 05/21/17 at 09:00 Magnesium Oxide (Mag-Ox 400) 400 mg BID PO Last administered on 05/22/17 08: 13; Admin Dose 400 MG; Start 05/21/17 at 15:00 Nicotine (Nicoderm 21 Mg/ 24hr) 1 patch DAILY TRANSDERM ; Start 05/21/17 at 19: 30 Diphenhydramine HCl (Benadryl) 25 mg Q6H PRN PO ITCHING Last administered on 22:19; Admin Dose 25 MG; Start 05/21/17 at 22:00 Tramadol HCl 50 mg 50 mg Q6H PRN PO PAIN/ HEADACHE; Start 05/22/17 at 12:00 Ceftriaxone Sodium (Rocephin) 50 ml @ 100 mls/hr Q24H IVPB ; Start 05/22/17 at 14:30 Pantoprazole (Protonix Iv) 40 mg BID@06,18 IV ; Start 05/22/17 at 18:00 LORRAINE MULLIGAN MD May 22, 2017 14:12
[2017-05-22] MEDS: CEFTRIAXONE 2 GM/50 ML (PMX) 50 ML IVPB SCH (14:52)
--- NOTE | 2017-05-22 14:59 | RADRPT ---
PROCEDURE: LEXISCAN MYOCARDIAL PERFUSION STUDY CLINICAL INDICATION: 62 -year-old patient with chest pain. TECHNIQUE: Lexiscan 0.4 mg intravenously separate acquisition, gated myocardial perfusion SPECT us ing 30 mCi intravenously at stress and 10 mCi intravenously at rest was performed using the rest/str ess sequence. Poststress SPECT images were obtained in the supine position. COMPARISON: No prior studies. FINDINGS: Perfusion images reveal no evidence of perfusion defects. Poststress gated SPECT images demonstrate no wall motion abnormalities. IMPRESSION: 1. No evidence of perfusion defects. 2. No wall motion abnormalities. 3. The left ventricle ejection fraction at stress is overestimated at 70% likely due to small cardi ac volume. RPTAT: HH Physician Luly Date Time Electronically viewed and signed by Jovita Camacho Physician on 05/22/2017 14:58 /
--- NOTE | 2017-05-22 17:02 | SP ---
DATE OF PROCEDURE: 05/22/2017 PROCEDURE: Lexiscan cardiac stress test. REFERRING PHYSICIAN: Pablito Padilla MD REASON FOR EVALUATION: Chest pain. DESCRIPTION OF PROCEDURE: The patient had a successful Lexiscan injection, there were no ischemic c hanges. The imaging portion of the report will be dictated separately. Dictated By: LORRAINE MULLIGAN MD ML/NTS Conf#: [id number] DID#: [id number]
[2017-05-22] MEDS: PANTOPRAZOLE 40 MG INJ IV SCH (17:07)
--- NOTE | 2017-05-22 18:05 | PN ---
Date/Time of Note Date/Time of Note DATE: 05/22/17 TIME: 17:56 Assessment/Plan VTE Prophylaxis VTE Prophylaxis Intervention: SCD's Lines/Catheters [facility] Urinary Cath still in place: No Assessment/Plan Chief Complaint/Hosp Course 1. Chest pain secondary to gastric ulcer -CTA chest shows a gastric ulcer -Nuclear stress test was negative -Plan is for endoscopy tomorrow -Increased Protonix to 40 IV twice daily -DC aspirin and beta rae -Cardiology and GI consultations appreciated 2. Nausea and vomiting secondary to above-stable -Endoscopy in a.m. -CT pelvis and KUB show no significant findings 3. Sepsis secondary to UTI -Start Rocephin -Follow-up on urine culture 4. History of PUD -PPI Prophylaxis: SCDs Problems: Subjective 24 Hr Interval Summary Cardiovascular: chest pain Exam/Review of Systems Vital Signs Vitals Vital Signs Date Time Temp Pulse Resp B/P Pulse Ox O2 Delivery O2 Flow Rate FiO2 05/22/17 16:14 98.3 89 18 124/72 96 05/22/17 04:31 Room Air 05/21/17 08:14 2.0 Intake and Output 05/21/17 05/21/17 05/22/17 15:00 23:00 07:00 Intake Total 950 ml 300 ml Balance 950 ml 300 ml Exam Constitutional: alert, oriented Respiratory: clear to auscultation Cardiovascular: regular rate and rhythm Gastrointestinal: soft, No distended Musculoskeletal: nl extremities to inspection Results Result Diagram: 05/22/17 0540 05/22/17 0540 Results 24 hrs Laboratory Tests Test 05/22/17 05:40 White Blood Count 9.5 Red Blood Count 3.43 L Hemoglobin 11.1 L Hematocrit 34.1 L Mean Corpuscular Volume 99.4 Mean Corpuscular Hemoglobin 32.4 Mean Corpuscular Hemoglobin Concent 32.6 Red Cell Distribution Width 12.8 Platelet Count 414 Mean Platelet Volume 8.3 Neutrophils % 70.2 Lymphocytes % 16.8 Monocytes % 8.1 Eosinophils % 3.7 Basophils % 0.8 Nucleated Red Blood Cells % 0.0 Neutrophils # 6.7 Lymphocytes # 1.6 Monocytes # 0.8 Eosinophils # 0.4 Basophils # 0.1 Nucleated Red Blood Cells # 0.0 Sodium Level 140 Potassium Level 4.4 Chloride Level 105 Carbon Dioxide Level 27 Anion Gap 12 Blood Urea Nitrogen 24 H Creatinine 0.91 Glucose Level 84 Calcium Level 9.6 Magnesium Level 1.9 Medications Medications Current Medications Ondansetron HCl (Zofran Inj) 4 mg Q6H PRN IV NAUSEA AND/OR VOMITING Last administered on 05/22/17 17:07; Admin Dose 4 MG; Start 05/20/17 at 22:30 Hydromorphone HCl (Dilaudid) 0.5 mg Q4H PRN IV PAIN Last administered on 14:42; Admin Dose 0.5 MG; Start 05/20/17 at 22:30 Nitroglycerin (Nitroglycerin (Sl Tab) 0.4 Mg) 1 tab Q5M PRN SL ANGINA Last administered on 05/20/17 23:01; Admin Dose 1 TAB; Start 05/20/17 at 23:00 Enoxaparin Sodium (Lovenox) 40 mg DAILY SC Last administered on 05/22/17 08: 16; Admin Dose 40 MG; Start 05/21/17 at 09:00 Aspirin (Aspirin) 81 mg DAILY PO Last administered on 05/22/17 08:08; Admin Dose 81 MG; Start 05/21/17 at 09:00 Metoprolol Tartrate (Lopressor) 25 mg BID PO Last administered on 05/21/17 20 :17; Admin Dose 25 MG; Start 05/21/17 at 09:00 Magnesium Oxide (Mag-Ox 400) 400 mg BID PO Last administered on 05/22/17 08: 13; Admin Dose 400 MG; Start 05/21/17 at 15:00 Nicotine (Nicoderm 21 Mg/ 24hr) 1 patch DAILY TRANSDERM ; Start 05/21/17 at 19: 30 Diphenhydramine HCl (Benadryl) 25 mg Q6H PRN PO ITCHING Last administered on 22:19; Admin Dose 25 MG; Start 05/21/17 at 22:00 Tramadol HCl 50 mg 50 mg Q6H PRN PO PAIN/ HEADACHE; Start 05/22/17 at 12:00 Ceftriaxone Sodium (Rocephin) 50 ml @ 100 mls/hr Q24H IVPB Last administered on 05/22/17 14:52; Admin Dose 100 MLS/HR; Start 05/22/17 at 14:30 Pantoprazole (Protonix Iv) 40 mg BID@06,18 IV Last administered on 05/22/17t 17:07; Admin Dose 40 MG; Start 05/22/17 at 18:00 JONNY MORGAN May 22, 2017 18:05
[2017-05-22] MEDS: DIPHENHYDRAMINE 25 MG CAP PO PRN (21:18)
[2017-05-23] VITALS (18 sets, daily range): BP systolic 112–130; BP diastolic 49–69; PULSE 60–81; RESP 17–21
[2017-05-23] MEDS: ONDANSETRON 4 MG INJ IV PRN ×3 (01:17→20:18)
[2017-05-23] MEDS: HYDROmorphONE 0.5 MG/0.5 ML SYG IV PRN ×4 (01:18→20:18)
[2017-05-23] MEDS ORDERED: PANTOPRAZOLE (EC) 40 MG TAB PO SCH (06:00)
[2017-05-23] MEDS: PANTOPRAZOLE 40 MG INJ IV SCH ×2 (06:49→18:38)
--- NOTE | 2017-05-23 07:28 | CONS ---
DATE OF ADMISSION: 05/21/2017 DATE OF CONSULTATION: 05/21/2017 REFERRING PHYSICIAN: Dr. Calderon. REASON FOR EVALUATION: Chest pain. HISTORY OF PRESENT ILLNESS: Ms. NYE is a 62-year-old woman with history of hypertension, dysl ipidemia, history of depression, history of hazardous tobacco use, who comes to the hospital now for evaluation of chest pain. The patient stated that she had a stress test before, but she does not r ecall when it was done, but it was done many years ago. Currently, the patient is not in acute card iac decompensation. However, she has multiple risk factors for coronary artery disease. I th ink it would be very reasonable to risk stratify the patient with a stress test while she is here in the hospital. We will schedule this stress test for tomorrow. PAST MEDICAL HISTORY: 1. Hypertension. 2. Dyslipidemia. 3. History of depression. 4. History of chronic tobacco use. 5. History of likely COPD. ALLERGIES: NONE. SOCIAL HISTORY: The patient has a history of tobacco use, now only smokes 6 cigarettes a day. Does not drink or use any drugs. FAMILY HISTORY: Negative for sudden cardiac or premature coronary artery disease. MEDICATIONS: Here include: 1. . 2. Lovenox subcutaneous for DVT prophylaxis. 3. Aspirin. 4. Metoprolol tartrate. 5. Ondansetron. 6. Hydromorphone. REVIEW OF SYSTEMS: CONSTITUTIONAL: No fevers, no chills, no shortness of breath. HEENT: No changes in vision or hearing. CARDIAC: No chest pain reported now, but prior chest pain. RESPIRATORY: . GASTROINTESTINAL: No nausea, vomiting, diarrhea, constipation. GENITOURINARY: No dysuria, hematuria. NEUROLOGIC: No focal deficits. HEMATOLOGIC: PSYCHIATRIC: History of depression. PHYSICAL EXAMINATION: VITAL SIGNS: Temperature is 97.2, heart rate 82, blood pressure 126. GENERAL: She is a well-nourished woman in no acute distress, alert and oriented x3, aware of her co ndition. HEAD: Normocephalic, atraumatic. Eyes anicteric. NECK: Supple. JVD 6-7 cm. There is no lymphadenopathy. HEART: Regular with soft holosystolic murmur in mid chest, changes with respiration. PMI is . LUNGS: Coarse at bases. ABDOMEN: Distended, bowel sounds present. No hepatosplenomegaly. GENITOURINARY: Grossly intact. LABORATORY DATA: White blood cell count 11.1, hemoglobin 11.4, platelets 437. Sodium 132, potassiu m 4.3. Her hemoglobin is .4. Troponin is negative at 0.01. ASSESSMENT AND PLAN: 1. Chest pain. The patient has chest pain. She has multiple risk factors coronary artery dis ease. Will risk stratify with stress test for tomorrow. 2. Hypertension. Blood pressure is well controlled. Continue to monitor. 3. Chronic obstructive pulmonary disease. Discontinue tobacco. Advised defer to primary team for e valuation of hypertension but patient is on good therapy. Will continue chest therapy. 3. Dyslipidemia. LDL is slightly on the high side. Will consider statin after the stress test. I would like to thank Dr. Calderon referring this patient for my evaluation. Dictated By: LORRAINE DIALLO/IRIS Conf#: [id number] DID#: [id number]
[2017-05-23 07:43] LABS: BASOPHILS % 0.5 % (0.0-2.0); EOSINOPHILS # 0.2 10^3/ul (0.0-0.5); EOSINOPHILS % 2.9 % (0.0-7.0); HEMATOCRIT 35.2 % (37.0-47.0); HEMOGLOBIN 11.3 g/dl (12.0-16.0); LYMPHOCYTES # 1.4 10^3/ul (0.8-2.9); LYMPHOCYTES % 17.7 % (15.0-51.0); MEAN CORPUSCULAR HEMOGLOBIN 31.4 pg (29.0-33.0); MEAN CORPUSCULAR HGB CONC 32.1 g/dl (32.0-37.0); MEAN CORPUSCULAR VOLUME 97.8 fl (82.0-101.0); MEAN PLATELET VOLUME 8.4 fl (7.4-10.4); MONOCYTE # 0.7 10^3/ul (0.3-0.9); MONOCYTES % 9.6 % (0.0-11.0); NEUTROPHIL # 5.3 10^3/ul (1.6-7.5); PLATELET COUNT 416 10^3/UL (140-415); RED CELL DISTRIBUTION WIDTH 12.9 % (11.5-14.5); WHITE BLOOD COUNT 7.7 10^3/ul (4.8-10.8)
[2017-05-23 08:26] LABS: CALCIUM 9.3 mg/dl (8.4-10.2); CREATININE 0.71 mg/dl (0.44-1.00); MAGNESIUM 1.9 mg/dl (1.7-2.5); POTASSIUM 4.3 mmol/L (3.5-5.1)
[2017-05-23] MEDS: NICOTINE (21 MG/24 HR) PATCH TRANSDERM SCH (08:45)
--- NOTE | 2017-05-23 13:29 | CONS ---
Date/Time of Note Date/Time of Note DATE: 05/23/17 TIME: 13:26 Assessment/Plan Assessment/Plan Chief Complaint/Hosp Course ASSESSMENT AND PLAN: 1. Chest pain. -negative trop x 3. ? due to ulcer as seen by CT 2. Hypertension. 3. Chronic obstructive pulmonary disease. Discontinue tobacco. 3. Dyslipidemia. Recc: -tele -serial ecg's -Continue PPI -PRN SL NTG -Will f/u echo -Continue abx's and f/u cx data Problems: Consultation Date/Type/Reason Admit Date/Time May 21, 2017 at 11:05 Initial Consult Date 05/22/17 Type of Consultation: cardiology Reason for Consultation Chest pain Referring Provider: JONNY MORGAN Exam/Review of Systems Vital Signs Vitals Vital Signs Date Time Temp Pulse Resp B/P Pulse Ox O2 Delivery O2 Flow Rate FiO2 05/23/17 12:09 70 05/23/17 11:47 98.1 18 124/58 94 05/22/17 04:31 Room Air 05/21/17 08:14 2.0 Intake and Output 05/22/17 05/22/17 05/23/17 15:00 23:00 07:00 Intake Total 700 ml 400 ml Balance 700 ml 400 ml Exam Review of Systems: CONSTITUTIONAL: No fevers, chills. PULMONARY: No sob CARDIOVASCULAR: No chest pain/palpitations GASTROINTESTINAL: No nausea/vomiting. GENITOURINARY: No hematuria/dysuria. MUSCULOSKELETAL: No myagias/arthalgias. PSYCHIATRIC: The patient denies depression. NEUROLOGIC: No weakness Constitutional: other (sleeping) Psych: no complaints Head: normocephalic ENMT: mucosa pink and moist Neck: jvd (8-9 cm water), supple Respiratory: diminished breath sounds (at bases/B) Cardiovascular: regular rate and rhythm Gastrointestinal: non-tender, soft Musculoskeletal: muscle tone (normal) Extremities: edema (none) Neurological: other (No focal deficits) Results Result Diagram: 05/23/17 0611 05/23/17 0611 Results 24 hrs Laboratory Tests Test 05/23/17 06:11 White Blood Count 7.7 Red Blood Count 3.60 L Hemoglobin 11.3 L Hematocrit 35.2 L Mean Corpuscular Volume 97.8 Mean Corpuscular Hemoglobin 31.4 Mean Corpuscular Hemoglobin Concent 32.1 Red Cell Distribution Width 12.9 Platelet Count 416 H Mean Platelet Volume 8.4 Neutrophils % 69.0 Lymphocytes % 17.7 Monocytes % 9.6 Eosinophils % 2.9 Basophils % 0.5 Nucleated Red Blood Cells % 0.0 Neutrophils # 5.3 Lymphocytes # 1.4 Monocytes # 0.7 Eosinophils # 0.2 Basophils # 0.0 Nucleated Red Blood Cells # 0.0 Sodium Level 138 Potassium Level 4.3 Chloride Level 104 Carbon Dioxide Level 27 Anion Gap 11 Blood Urea Nitrogen 20 Creatinine 0.71 Glucose Level 85 Calcium Level 9.3 Magnesium Level 1.9 Medications Medications Current Medications Ondansetron HCl (Zofran Inj) 4 mg Q6H PRN IV NAUSEA AND/OR VOMITING Last administered on 05/23/17 13:08; Admin Dose 4 MG; Start 05/20/17 at 22:30 Hydromorphone HCl (Dilaudid) 0.5 mg Q4H PRN IV PAIN Last administered on 13:02; Admin Dose 0.5 MG; Start 05/20/17 at 22:30 Nitroglycerin (Nitroglycerin (Sl Tab) 0.4 Mg) 1 tab Q5M PRN SL ANGINA Last administered on 05/20/17 23:01; Admin Dose 1 TAB; Start 05/20/17 at 23:00 Nicotine (Nicoderm 21 Mg/ 24hr) 1 patch DAILY TRANSDERM ; Start 05/21/17 at 19: 30 Diphenhydramine HCl (Benadryl) 25 mg Q6H PRN PO ITCHING Last administered on 21:18; Admin Dose 25 MG; Start 05/21/17 at 22:00 Tramadol HCl 50 mg 50 mg Q6H PRN PO PAIN/ HEADACHE; Start 05/22/17 at 12:00 Ceftriaxone Sodium (Rocephin) 50 ml @ 100 mls/hr Q24H IVPB Last administered on 05/22/17 14:52; Admin Dose 100 MLS/HR; Start 05/22/17 at 14:30 Pantoprazole (Protonix Iv) 40 mg BID@06,18 IV Last administered on 05/23/17 06:49; Admin Dose 40 MG; Start 05/22/17 at 18:00 MARIA A BRUNO May 23, 2017 13:29
[2017-05-23] MEDS: CEFTRIAXONE 2 GM/50 ML (PMX) 50 ML IVPB SCH (14:35)
--- NOTE | 2017-05-23 17:53 | RADRPT ---
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 Physician: JONNY MORGAN Quality: Adequate Procedures: Transthoracic echocardiogram with complete 2D, M-Mode, and Doppler examination. Indications: Chest Pain. 2D/M Mode Doppler Measurement Value Normal Ranges Measurement Value Normal Ranges AoR Diam MM 3.0 cm AV Peak Lazaro 1.0 m/sec ACS MM 2.2 cm AV Peak PG 4.0 mmHg LVIDd 2D 4.9 3.5 - 5.6 cm LVOT Peak Lazaro 0.9 m/sec LVIDs 2D 3.4 2.1 - 4.1 cm LVOT Peak PG 3.2 mmHg LVPWd 2D 1.0 0.6 - 1.1 cm MV E Peak Lazaro 0.6 m/sec IVSd 2D 1.0 0.6 - 1.1 cm MV A Peak Lazaro 0.8 m/sec EDV 2D 114.8 cm3 MV E/A 0.8 ESV 2D 40.1 cm3 MV Decel Time 220 msec LA Dimen 2D 3.5 2.3 - 4.0 cm MV Decel [place] 3 MV E/A 0.8 Findings Left Ventricle: Normal left ventricular systolic function. Normal left ventricular cavity size. Normal left ventricular wall thickness. Ejection fraction is visually estimated at 5560 %. Tissue Doppler/Mitral Doppler indices are consistent with impaired relaxation (Stage I diastolic dysfunction). E/E`=6. Right Ventricle: Normal right ventricular size. Normal right ventricular systolic function. Left Atrium: The left atrium is normal in size. Right Atrium: The right atrium is normal in size. Atrial Septum: Normal atrial septum. Mitral Valve: Normal appearance and function of the mitral valve with trace physiologic regurgitation. Aortic Valve: No significant aortic stenosis or insufficiency. Normal trileaflet aortic valve structure. Tricuspid Valve: Normal appearance of the tricuspid valve. No evidence of tricuspid regurgitation. Pulmonic Valve: Pulmonic valve not well visualized. Pericardium: Normal pericardium with no significant pericardial effusion. No pleural effusion noted. Aorta: Normal aortic root. IVC: Normal size and normal respiratory collapse consistent with normal right atrial pressure. Pulmonary Artery: Not well visualized. Conclusions 1.Normal left ventricular systolic function. Normal left ventricular cavity size. Normal left ventricular wall thickness. Ejection fraction is visually estimated at 55-60 %. Tissue Doppler/Mitral Doppler indices are consistent with impaired relaxation (Stage I diastolic dysfunction). E/E`=6. 2.Normal appearance and function of the mitral valve with trace physiologic regurgitation. 3.Normal appearance of the tricuspid valve. No evidence of tricuspid regurgitation. Electronically Signed By: Moise Mullins 23-May-2017 17:53:14 -0700 Patient Name: COOPER NYE Study Date: 22-May-2017 [id number]
[2017-05-23] MEDS ORDERED: PROPOFOL 20 ML ONE (17:55)
[2017-05-23] MEDS ORDERED: LIDOCAINE 2% (SDV) 5 ML INJ ONE (17:55)
--- NOTE | 2017-05-23 17:56 | HPN ---
Date/Time of Note Date/Time of Note DATE: 05/23/17 TIME: 17:56 Interval H&P Admission Note Pt. seen H&P reviewed: No system changes ANGELLA ROBERTSON MD May 23, 2017 17:56
--- NOTE | 2017-05-23 18:14 | OPPN ---
Date/Time of Note Date/Time of Note DATE: 05/23/17 TIME: 18:09 Proc Note GI Procedure Date 05/23/17 Indication: other (Abnormal CT suggestive of gastric ulcer) Pre-procedure Diagnosis Abnormal CT suggestive of gastric ulcer Post-procedure Diagnosis Impression: Large 4 cm deep ulceration greater curvature curvature mid body of the stomach. Somewhat nodular edges. Rule out CVA. Biopsies obtained 2 large duodenal ulcers 4 cm and 6 cm. Largest one with the nodular edges suggestive of possible neoplasm. Multiple biopsies obtained. Otherwise normal EGD Plan: 24 mg twice daily, Carafate 1 g 4 times daily suspension Review biopsies as soon as available Avoid nonsteroidal inflammatory agents Follow-up EGD in 8-12 weeks . Procedure Performed: Other (EGD plus biopsy) Surgeon ANGELLA ROBERTSON MD See signature line Assurance Analyst none Anesthesia Type: MAC Anesthesiologist: SPENCER MENDEZ DO Tourniquet Time none EBL none Transfusion required none Biopsy 1: Duodenal ulcer/rule out CA Biopsy 2: Gastric ulcer/rule out CA Grafts/Implants none Tubes/Drains none Complication(s) none Disposition: PACU Procedure Description Preoperative Diagnosis: After informed consent, with the patient/relatives understanding the procedure, its indications, potential risks and complications, including but not limited to : allergic reaction, bleeding, perforation or infection, and after all pertinent questions were answered to the patients satisfaction, the patient/ relatives signed witnessed informed consent. Following this, premedication was administered slowly IV push under careful cardiovascular and respiratory monitoring with pulse oximetry, automatic blood pressure, and quality assurance monitor. Once the sedative effect was achieved the patient was place in the left lateral decubitus, the panendoscope was introduced and advanced under visual control. Careful examination of the upper gastrointestinal tract, both on insertion as well as withdrawal of the instrument disclosing the following findings: ESOPHAGUS: the mucosa of the entire esophagus was carefully examined and showed the following findings: the mucosa appears within normal limits. There is no evidence of esophagitis, varices, neoplasm, or stricture. No Hiatal Hernia identified. STOMACH: Upon entrance to the stomach air was insufflated, the gastric alvarado distended normally. The mucosa of the fundus, body and antrum of the stomach was carefully examined both head-on and on retroflexion, and showed the following findings: There is a huge at least 4 cm deep ulceration in the greater curvature mid body of the stomach. The edges of the ulcer are nodular raising the possibility of neoplastic process. Multiple biopsies were obtained. Otherwise the mucosa appears within normal limits with no abnormalities. PYLORUS: The pylorus was carefully examined and showed the following findings: the pylorus appears patent and within normal limits, with no evidence of gastric outlet obstruction. DUODENUM: The duodenal mucosa was carefully examined in the duodenal bulb as well as the second portion of the duodenum and showed the following findings: There are 2 large ulcerations in the duodenal bulb one measures 4 cm, deep cratered, no stigmata. The lateral largest one measures approximately 6 cm and has nodular ages which raised the concern about possibility of neoplasm. Multiple biopsies were obtained. Otherwise the mucosa appears unremarkable. Copies To: CC: ANGELLA ROBERTSON MD, MORDO MD May 23, 2017 18:14
[2017-05-23] MEDS: SUCRALFATE (100 MG/ML) 10ML CUP PO SCH ×2 (20:17→20:20)
[2017-05-23] MEDS ORDERED: ZOLPIDEM 5 MG TAB PO PRN (23:10)
[2017-05-24] VITALS (9 sets, daily range): BP systolic 112–125; BP diastolic 56–58; PULSE 64–114; RESP 17–20
[2017-05-24] MEDS: PANTOPRAZOLE 40 MG INJ IV SCH (05:50)
[2017-05-24] MEDS: SUCRALFATE (100 MG/ML) 10ML CUP PO SCH ×2 (08:08→12:37)
[2017-05-24] MEDS: NICOTINE (21 MG/24 HR) PATCH TRANSDERM SCH (08:10)
--- NOTE | 2017-05-24 10:32 | CONS ---
Date/Time of Note Date/Time of Note DATE: 05/24/17 TIME: 10:31 Assessment/Plan Assessment/Plan Additional Assessment/Plan 1. Chest pain. The patient has chest pain. Arianna SPECT EF 70%, no ischemia. 2. Hypertension. Blood pressure is well controlled. Continue to monitor. WELL RX now. 3. Chronic obstructive pulmonary disease. Discontinue tobacco. Advised defer to primary team for evaluation of hypertension but patient is on good therapy. Will continue chest therapy. 4. Dyslipidemia. LDL is slightly on the high side. Will consider statin after the stress test. Consultation Date/Type/Reason Admit Date/Time May 21, 2017 at 11:05 Type of Consultation: cardiology Referring Provider: JONNY MORGAN 24 HR Interval Summary Free Text/Dictation NO acute events. NO CP now. ROS: No fever, no chills, no nausea, no vomiting, no diarrhea/constipation No recent weight changes No chest pain, no PND, no orthopnea No dizziness, blurred vision No thirst, no heat or cold intolerance Exam/Review of Systems Vital Signs Vitals Vital Signs Date Time Temp Pulse Resp B/P Pulse Ox O2 Delivery O2 Flow Rate FiO2 05/24/17 08:00 64 05/24/17 07:58 98.1 17 112/57 98 05/23/17 18:40 Room Air 05/21/17 08:14 2.0 Intake and Output 05/23/17 05/23/17 05/24/17 15:00 23:00 07:00 Intake Total 50 ml 400 ml Balance 50 ml 400 ml Exam General: WN/WD/NAD, AOx 3 HEENT: Unicetric/atraumatic/EOMI (follow commands) NECK: JVD elevated, no thyromegaly Lymph: no lymphadenopathy HEART: regular with no S3, II/ systolic murmur at apex LUNGS: Coarse sounds ABD: soft, NT, ND, +BS : Intact Neuro: non focal SKIN: chronic changes EXT: trace edema Results Result Diagram: 05/23/1761005/23/17610 Medications Medications Current Medications Ondansetron HCl (Zofran Inj) 4 mg Q6H PRN IV NAUSEA AND/OR VOMITING Last administered on 05/23/17t 20:18; Admin Dose 4 MG; Start 05/20/17 at 22:30 Hydromorphone HCl (Dilaudid) 0.5 mg Q4H PRN IV PAIN Last administered on 20:18; Admin Dose 0.5 MG; Start 05/20/17 at 22:30 Nitroglycerin (Nitroglycerin (Sl Tab) 0.4 Mg) 1 tab Q5M PRN SL ANGINA Last administered on 05/20/17 23:01; Admin Dose 1 TAB; Start 05/20/17 at 23:00 Nicotine (Nicoderm 21 Mg/ 24hr) 1 patch DAILY TRANSDERM ; Start 05/21/17 at 19: 30 Diphenhydramine HCl (Benadryl) 25 mg Q6H PRN PO ITCHING Last administered on 21:18; Admin Dose 25 MG; Start 05/21/17 at 22:00 Tramadol HCl 50 mg 50 mg Q6H PRN PO PAIN/ HEADACHE; Start 05/22/17 at 12:00 Ceftriaxone Sodium (Rocephin) 50 ml @ 100 mls/hr Q24H IVPB Last administered on 05/23/17 14:35; Admin Dose 100 MLS/HR; Start 05/22/17 at 14:30 Pantoprazole (Protonix Iv) 40 mg BID@06,18 IV Last administered on 05/24/17 05:50; Admin Dose 40 MG; Start 05/22/17 at 18:00 Sucralfate (Carafate Susp) 1 gm QID PO Last administered on 05/24/17 08:08; Admin Dose 1 GM; Start 05/23/17 at 18:30 LORRAINE MULLIGAN MD May 24, 2017 10:32
[2017-05-24] MEDS: ONDANSETRON 4 MG INJ IV PRN (12:37)
[2017-05-24] MEDS: CEFTRIAXONE 2 GM/50 ML (PMX) 50 ML IVPB SCH (14:07)
[2017-05-24] MEDS ORDERED: OMEP40CA6 PO (14:32)
--- NOTE | 2017-05-24 14:33 | PDOCDIS ---
Discharge Instructions DIAGNOSIS Discharge Diagnosis Peptic ulcer CONDITION Patient Condition: Fair FOLLOW UP/APPOINTMENTS Follow-up Plan Make an appointment in clinic to see Dr Barak Almazan for the results of your biopsy You should continue to take Prilosec. If you need a new prescription you can pick it up at [facility]'s pharmacy Return to the hospital if you have any worsening of your symptoms or any other concerns МАРИНА GOULD MD May 24, 2017 14:33
--- NOTE | 2017-05-24 16:26 | DS ---
Date/Time of Note Date/Time of Note DATE: 05/24/17 TIME: 16:24 Discharge Summary Admission/Discharge Info Admit Date/Time May 21, 2017 at 11:05 Discharge Date/Time Discharge Diagnosis Peptic ulcer Patient Condition: Fair Hx of Present Illness This is a 62-year-old female with a history of depression, PUD, chronic chest pain and lumpectomy who presented to the emergency department complaining of chest pain 1 week. Pain is mainly localized in the mid chest with radiation to her back. She reported associated nonbilious nonbloody vomiting. Denied shortness of breath, fever chills or diaphoresis. She said that she has been using heat pack to her chest to help with the pain and as a result she has developed some blistering to her breasts. As I was leaving the room, she said she had pessary for bladder prolapse 14 years ago and now, she feels her "bladder moving". She said at times, it has been difficult to urinate unless she "moves her bladder by hand". When she presented to the ER, she was tachycardic with heart rate of 110 otherwise the rest of the vitals were stable. EKG was no ST-T wave abnormality and the first troponin is negative. Labs shows a WBC of 13.4 calcium of 10.4 otherwise CBC and a CMP within acceptable range. Chest x-ray with no active cardiopulmonary disease. Hospital Course Patient underwent serial EKGs and troponin tests which were negative Stress test was also negative for coronary ischemai She continued to have pain in chest/epigastrium. A CT was performed which showed a very large gastric ulcer. She thus underwent EGD which confirmed large penetrating gastric ulcer concerning for malignancy. This was biopsied. Following the procedure, she felt well and requested to be discharged. She will continue on PPI therapy and will follow up in clinic [facility] Dr Almazan to hear the results of her biopsy Home Meds Active Scripts Omeprazole* (Omeprazole*) 40 Mg Capsule., 40 MG PO DAILY for 30 Days, #30 CAP Prov:МАРИНА GOULD MD 05/24/17 Follow-up Plan Make an appointment in clinic to see Dr Barak Almazan for the results of your biopsy You should continue to take Prilosec. If you need a new prescription you can pick it up at [facility]'s pharmacy Return to the hospital if you have any worsening of your symptoms or any other concerns Primary Care Provider Care Physician Franci Primary МАРИНА GOULD MD May 24, 2017 16:26
== END 2017-05-24 16:19 | disposition home or self-care (01) | DRG 872 ==
LOC: E/R 15:04 → MS4 20:10 → OBSVTOIN 05-21 11:05
PROVIDERS: ADMIT Internal Medicine; ATTEND Internal Medicine
PROC: 0DB68ZX Excision of Stomach, Via Natural or Artificial Opening Endoscopic, Diagnostic (ICD-10-PCS; 2017-05-23)
PROC: 0DB98ZX Excision of Duodenum, Via Natural or Artificial Opening Endoscopic, Diagnostic (ICD-10-PCS; principal; 2017-05-23 18:30)
DX: A41.9 Sepsis, unspecified organism (principal); K26.9 Duodenal ulcer, unspecified as acute or chronic, without hemorrhage or perforation; K25.9 Gastric ulcer, unspecified as acute or chronic, without hemorrhage or perforation; N39.0 Urinary tract infection, site not specified; I10 Essential (primary) hypertension; R07.9 Chest pain, unspecified; D64.9 Anemia, unspecified; R11.10 Vomiting, unspecified; J44.9 Chronic obstructive pulmonary disease, unspecified; K21.9 Gastro-esophageal reflux disease without esophagitis; F32.9 Major depressive disorder, single episode, unspecified; F17.210 Nicotine dependence, cigarettes, uncomplicated; E78.5 Hyperlipidemia, unspecified; B96.1 Klebsiella pneumoniae [K. pneumoniae] as the cause of diseases classified elsewhere
CPT/HCPCS: 36415; 71010; 71275; 72192; 74000; 78452; 80048; 80053; 80061; 81001; 82550; 82553; 83036; 83735; 83880; 84100; 84443; 84484; 85025; 87086; 88305; 88312; 90686; 93005; 93017; 93306; 96374; 96375; 96376; G0378; A9500; A9505; C9113; J1170; J1650; J2405; J2785; Q9967

== ENCOUNTER 2017-07-06 14:10 | Inpatient (IN) | payer OTHER ==
[~2017-07-06] VITALS: Ht 165.1 cm; Wt 74.0 kg
[2017-07-06] VITALS (19 sets, daily range): BP systolic 91–117; BP diastolic 48–63; PULSE 88–114; RESP 10–39; TEMP 98.1; Ht 165.1 cm; Wt 74.0 kg
[~2017-07-06 14:10] MED LIST: FENTAnyl 250MCG INJ ONE; FENTAnyl 50 MCG/ML VIAL ONE; MIDAZOLAM 1 MG/ML 2 ML INJ ONE; OMEP40CA6 PO; ONDANSETRON 4 MG INJ ONE; PROPOFOL 200 MG INJ ONE; ROCURONIUM 50 MG INJ ONE; SUGAMMADEX SODIUM 200 MG/2 ML VIAL IV ONE
[2017-07-06] MEDS ORDERED: ONDANSETRON 4 MG INJ IV STA ×2 (15:14→15:23)
[2017-07-06] MEDS ORDERED: SOD CHLORIDE 0.9% 1,000 ML IV STA (15:14)
[2017-07-06] MEDS ORDERED: HYDROmorphONE 1 MG/ML SYG IV STA ×3 (15:14→17:39)
--- NOTE | 2017-07-06 15:21 | ERD ---
ER Documentation Chief Complaint Chief Complaint PT BIB RA for c/o CP radiating to L shoulder, and LUQ pain X 2 hours. HPI This is 62-year-old female who states that 3 hours ago she had the sudden onset of sharp left upper quadrant pain with left shoulder and left chest pain. She says that she has had nausea vomiting no shortness of breath no diarrhea denies any abdominal trauma. She says most of her pain is located in the left upper quadrant and left shoulder. No pain with movement of the shoulder. Vomit is nonbilious and nonbloody. Denies any fever or prior cardiac history ROS All systems reviewed and are negative except as per history of present illness. Medications Home Meds Active Scripts Omeprazole* (Omeprazole*) 40 Mg Capsule., 40 MG PO DAILY for 30 Days, #30 CAP Prov:МАРИНА GOULD MD 05/24/17 Allergies Allergies: Coded Allergies: No Known Allergy (Unverified , 05/20/17) PMhx/Soc History of Surgery: Yes (C section, left lumpectomy) Anesthesia Reaction: No Hx Neurological Disorder: No Hx Respiratory Disorders: No Hx Cardiac Disorders: Yes (chronic chest pain) Hx Psychiatric Problems: No (Deppression) Hx Miscellaneous Medical Probl: No Hx Alcohol Use: No Hx Substance Use: No Hx Tobacco Use: Yes Smoking Status: Current every day smoker FmHx Family History: No coronary disease Physical Exam Vitals Vital Signs Date Time Temp Pulse Resp B/P Pulse Ox O2 Delivery O2 Flow Rate FiO2 07/06/17 15:05 97.7 88 18 81/66 96 Physical Exam Const: Well-developed, well-nourished in obvious pain Head: Atraumatic, normocephalic Eyes: Normal Conjunctiva, PERRLA, EOMI, normal sclera, no nystagmus ENT: Normal External Ears, Nose and Mouth, moist mucus membranes. Neck: Full range of motion. No meningismus, no lymphadenopathy. Resp: Clear to auscultation bilaterally, no wheezing, rhonchi, rales Cardio: Regular rate and rhythm, no murmurs, S1 S2 present Abd: Soft, severe tenderness to the left upper quadrants non distended. Normal bowel sounds, no guarding or rebound, no pulsitile abdominal masses or bruits Skin: No petechiae or rashes, no ecchymosis , no maculopapular rash Back: No midline or flank tenderness Ext: No cyanosis, or edema, FROM x 4, normal inspection, neurovascularly intact x 4 Neur: Awake and alert, STR 5/5 x 4, sensation intact x 4, no focal findings, cerebellum intact Psych: Normal Mood and Affect Result Diagram: 07/06/17 1600 Results 24 hrs Laboratory Tests Test 07/06/17 16:00 White Blood Count 11.110^3/ul Red Blood Count 3.8910^6/ul Hemoglobin 12.4g/dl Hematocrit 37.7% Mean Corpuscular Volume 96.9fl Mean Corpuscular Hemoglobin 31.9pg Mean Corpuscular Hemoglobin Concent 32.9g/dl Red Cell Distribution Width 13.1% Platelet Count 52518^3/UL Mean Platelet Volume 8.4fl Neutrophils % 86.9% Lymphocytes % 7.8% Monocytes % 3.7% Eosinophils % 1.0% Basophils % 0.2% Nucleated Red Blood Cells % 0.0/100WBC Neutrophils # 9.610^3/ul Lymphocytes # 0.910^3/ul Monocytes # 0.410^3/ul Eosinophils # 0.110^3/ul Basophils # 0.010^3/ul Nucleated Red Blood Cells # 0.010^3/ul Prothrombin Time 13.2Sec Prothrombin Time Ratio 1.0 INR International Normalized Ratio 1.00 Activated Partial Thromboplast Time 26.4Sec Current Medications Medications (Trade) Dose Ordered Sig/Sarah Route PRN Reason Start Time Stop Time Status Last Admin Dose Admin Sodium Chloride (NS) 1,000 ml @ 1,000 mls/hr Q1H STAT IV 07/06/17 15:14 07/06/17 16:13 DC 07/06/17 15:19 Hydromorphone HCl (Dilaudid) 1 mg ONCE STAT IV 07/06/17 15:14 07/06/17 15:17 DC 07/06/17 15:19 Ondansetron HCl (Zofran Inj) 4 mg ONCE STAT IV 07/06/17 15:14 07/06/17 15:17 DC 07/06/17 15:19 Hydromorphone HCl (Dilaudid) 1 mg ONCE STAT IV 07/06/17 15:23 07/06/17 15:24 DC 11/29/17 15:31 Ondansetron HCl (Zofran Inj) 4 mg ONCE STAT IV 07/06/17 15:23 07/06/17 15:24 DC 07/06/17 15:30 IV Flush 10 ml 10 ml STK-MED ONCE .ROUTE 07/06/17 15:37 07/06/17 15:38 DC 07/06/17 15:44 Sodium Chloride (NS) 100 ml @ ud STK-MED ONCE .ROUTE 07/06/17 15:37 07/06/17 15:38 DC 07/06/17 15:44 Iodixanol 100 ml 100 ml STK-MED ONCE .ROUTE 07/06/17 15:37 07/06/17 15:38 DC 07/06/17 15:44 Ertapenem/Sodium Chloride (Invanz/NS) 100 ml @ 200 mls/hr ONCE ONCE IVPB 07/06/17 16:30 07/06/17 16:59 Procedures/MDM EKG: Rate/Rhythm: Normal sinus rhythm heart rate 87, 1 box elevation in aVF with one half box elevation in leads II possibly 3 QRS, ST, QT: NORMAL MA, QRS, QT] Impression: Abnormal EKG EKG: Rate/Rhythm: Normal Sinus Rhythm,NL intervals QRS, ST, QT: NORMAL MA, QRS, QT] Impression: NORMAL EKG Call from radiologist reports that there is a pneumoperitoneum from unknown area. There may be a source in the stomach or a perforated diverticula. There is a moderate amount of free air. I page Dr. Nielsen who is on-call for surgery. The patient's receiving a couple liter of fluids and Invanz 1 g IV. Patient will go to the operating room for exploratory laparotomy. Patient states to me that she has a history of gastric ulcers. Radiologist comments that the patient had evidence of gastric ulcer in the past on prior CT scans. Critical Care Time: 35 minutes Treatments/Evaluations: Close monitoring and treatment of unstable vital signs, cardiorespiratory, and neurologic status, while maintaining tight balance of fluid, respiratory, and cardiac interventions. This time includes discussing the case with the patient and the patient's family. This time does not include all procedures stated elsewhere in this record. This time also includes reviewing old records, labs and radiological studies. This time includes examining and re-examining the patient. Additionally, this time also includes arranging care with admitting and consulting physicians. Departure Diagnosis: Primary Impression: Bowel perforation Condition: Serious SANDER CASTILLO DO Jul 06, 2017 15:21
[2017-07-06] MEDS ORDERED: SOD CHLORIDE 0.9% 100 ML ONE (15:37)
[2017-07-06] MEDS ORDERED: IODIXANOL LOCM 100 ML BTL ONE (15:37)
[2017-07-06 16:23] LABS: BASOPHILS % 0.2 % (0.0-2.0); EOSINOPHILS # 0.1 10^3/ul (0.0-0.5); HEMATOCRIT 37.7 % (37.0-47.0); HEMOGLOBIN 12.4 g/dl (12.0-16.0); LYMPHOCYTES # 0.9 10^3/ul (0.8-2.9); LYMPHOCYTES % 7.8 % (15.0-51.0); MEAN CORPUSCULAR HEMOGLOBIN 31.9 pg (29.0-33.0); MEAN CORPUSCULAR HGB CONC 32.9 g/dl (32.0-37.0); MEAN CORPUSCULAR VOLUME 96.9 fl (82.0-101.0); MEAN PLATELET VOLUME 8.4 fl (7.4-10.4); MONOCYTE # 0.4 10^3/ul (0.3-0.9); MONOCYTES % 3.7 % (0.0-11.0); NEUTROPHIL # 9.6 10^3/ul (1.6-7.5); NEUTROPHILS % 86.9 % (39.0-77.0); PLATELET COUNT 446 10^3/UL (140-415); RED BLOOD COUNT 3.89 10^6/ul (4.20-5.40); RED CELL DISTRIBUTION WIDTH 13.1 % (11.5-14.5); WHITE BLOOD COUNT 11.1 10^3/ul (4.8-10.8)
[2017-07-06 16:27] LABS: PARTIAL THROMBOPLASTIN TIME 26.4 Sec (25.0-35.0); PROTIME 13.2 Sec (12.2-14.2)
[2017-07-06] MEDS ORDERED: ERTAPENEM SODIUM 1 GM in SOD CHLORIDE 0.9% 100 ML IVPB ONE (16:30)
[2017-07-06 16:34] LABS: ALANINE AMINOTRANSFERASE 28 IU/L (13-69); ALBUMIN/GLOBULIN RATIO 1.29; ALKALINE PHOSPHATASE 85 IU/L (42-121); ANION GAP 17 (8-16); ASPARTATE AMINO TRANSFERASE 24 IU/L (15-46); BLOOD UREA NITROGEN 24 mg/dl (7-20); CALCIUM 10.3 mg/dl (8.4-10.2); CARBON DIOXIDE 24 mmol/L (21-31); CHLORIDE 101 mmol/L (97-110); CREATININE 1.08 mg/dl (0.44-1.00); GLUCOSE 95 mg/dl (70-220); POTASSIUM 4.2 mmol/L (3.5-5.1); SODIUM 138 mmol/L (135-144); TOTAL PROTEIN 7.1 g/dl (6.1-8.1)
[2017-07-06] MEDS ORDERED: ASPI325T32 PO (16:46)
[2017-07-06 16:47] LABS: TROPONIN-I < 0.012 ng/ml (0.00-0.12)
--- NOTE | 2017-07-06 16:49 | RADRPT ---
PROCEDURE: CT Abdomen and Pelvis with contrast. CLINICAL INDICATION: Left upper quadrant pain TECHNIQUE: CT scan of the abdomen and pelvis with contrast was performed on a multi-detector high- resolution CT scanner. The patient was scanned following the uncomplicated intravenous administrati on of 100 cc of Visipaque 320 Coronal and sagittal reformatted images were obtained from the axial source images. Images were reviewed on a high-resolution PACS workstation. The total exam CTDI equal s 9.88 mGy and the total exam DLP equals 536.69 mGy-cm. DICOM images are available. One or more of the following dose reduction techniques were used: Automated exposure control. Adjustment of the mA and/or kV according to patient size. Use of iterative reconstruction technique. COMPARISON: None. FINDINGS: CT abdomen: The lung bases are remarkable for posterior dependent atelectasis. The heart size is normal, withou t pericardial thickening or effusion. Pneumoperitoneum is identified in the upper abdomen. Abnormal wall thickening of the distal gastric body with mild surrounding fatty infiltration and adjacent pockets of gas suggesting possible site o f the perforation. The liver is normal in size and density without focal mass or intrahepatic biliary dilatation. The spleen is normal in size and homogeneous in density. The stomach is partially collapsed, but is josephine ssly unremarkable. The pancreas as visualized is normal. The gallbladder is mildly distended with no significant wall thickening. There is no intrahepatic biliary ductal dilatation. Mildly dilated c ommon bile duct measures up to 9 mm in diameter with distal tapering. The adrenal glands are symmetr ic and normal. The kidneys are symmetrically unremarkable as well. No renal calculus or obstructiv e uropathy or mass lesion is seen. The aorta is of normal caliber. Aortic vascular calcifications are present. There is no retroperit edgar lymphadenopathy. The nestor hepatis region is clear. Scattered colonic diverticula are presen t without evidence of acute diverticulitis. There is a small fat containing periumbilical hernia. Th ere is mild wall thickening of the hepatic flexure and proximal transverse colon. CT pelvis: The small bowel loops situated within the pelvis are unremarkable. Vaginal pessary is in place. The pelvic organs are normal. The pelvic sidewalls and inguinal regions are clear. The sigmoid colon a nd rectum are remarkable for sigmoid diverticulosis. No mass, lymphadenopathy, or free fluid is see n. No acute inflammation is seen. The bladder is normal. The surrounding osseous structures are re markable for degenerative changes more evident at L4-L5 and L5-S1. There is mild anterolisthesis of L3 on L4. No osteolytic or osteoblastic lesion is detected. Critical findings were discussed with Molly Conklin on 07/06/2017 at 4:43 PM. IMPRESSION: 1. Pneumoperitoneum. Mild thickening of the distal gastric body/antrum with adjacent pockets of gas and mild inflammatory changes suggesting site of the perforation. 2. Mild wall thickening of the hepatic flexure and proximal transverse colon which could be reactive . 3. Mildly dilated common bile duct with normal distal tapering. 4. Scattered colonic diverticula without evidence of acute diverticulitis. 5. Aortoiliac atherosclerosis. 6. Moderate stool throughout the colon. Correlate with constipation. RPTAT: BB .Du Fung MD, Date Time Electronically viewed and signed by .Du Fung MD, on 07/06/2017 16:49 .O/
[2017-07-06] MEDS ORDERED: BUPIVACAINE 0.5% (SDV) 30 ML INJ ONE (17:00)
[2017-07-06] MEDS ORDERED: FAMOTIDINE 20 MG INJ IV ONE (17:00)
[2017-07-06] MEDS ORDERED: LIDOCAINE 1%/EPI 30 ML INJ ONE (17:00)
--- NOTE | 2017-07-06 18:25 | CONS ---
Date/Time of Note Date/Time of Note DATE: 07/06/17 TIME: 18:23 Assessment/Plan Assessment/Plan Chief Complaint/Hosp Course 1. Perforated viscous, probably PUD -ivf -iv abx -supportive -antacids -OR 2. PUD, extensive hx -rule out h. pylori -antacids -stop smoking -stop ASA -regular antacids use 3. Acute thrombocytosis secondary to above -Monitor 4. Acute renal insufficiency secondary to above -Judicious fluid management -Treat infection as above -Avoid nephrotoxic agents as possible 5. Noncompliance -Highly encouraged to comply with her treatments to avoid further injury Thank you very much for consulting me in this patient's care, Problems: Consultation Date/Type/Reason Admit Date/Time Date of Consultation: Jul 06, 2017 Type of Consultation: G. Surgical Reason for Consultation Perforated viscous Smoker Referring Provider: SANDER CASTILLO DO Hx of Present Illness Karlie Trujillo is a 62-year-old female with long history of peptic ulcer disease who is noncompliant with her medication and on recent EGD by Dr. Almazan was found to have multiple significant peptic ulcer disease that biopsy was negative for malignancy. H pylori Giemsa stain was also negative. Patient has had chronic abdominal pain radiating into her chest however today he started having significant pain that was not being relieved associated with nausea and nonbilious nonbloody vomiting. She denies any fevers or chills. No shortness of breath. No cough. No seizure. No blood per rectum. No dysuria. No vaginal discharge. No trauma or sick contacts. In the emergency room her workup identified free air. She has leukocytosis with thrombocytosis and elevated creatinine. Surgical consult is obtained further evaluation and treatment. 12 point review of systems negative unless addressed in HPI. Past Medical History Chronic peptic ulcer disease Gastric bleeding history Breast lesions Chronic chest pain, noncardiac Smoker Homeless Noncompliant Depression Acute leukocytosis Acute thrombocytosis Acute renal insufficiency Acute perforated viscus Past Surgical History EGDs Lumpectomies negative for malignancy Past Surgical Hx: endoscopy, other Family History Significant Family History: other (Drug and alcohol abuse history in the family ) Social History Alcohol Use: none Smoking Status: Current every day smoker (Half a pack per day) Drug Use: none Other Social History Homeless and staying at a [facility] currently Exam/Review of Systems Vital Signs Vitals Vital Signs Date Time Temp Pulse Resp B/P Pulse Ox O2 Delivery O2 Flow Rate FiO2 07/06/17 17:57 98.1 88 18 118/62 98 Nasal Cannula 2.0 Exam Constitutional: alert, oriented, No distress (But uncomfortable) Psych: anxiety, No confusion Head: atraumatic, normocephalic Eyes: EOMI, PERRL, nl conjunctiva, No icteric ENMT: nl external ears & nose, nl lips & teeth, No mucosa pink and moist Neck: non-tender, supple, No jvd Respiratory: normal air movement, No congested cough, No diminished breath sounds, No labored breathing Cardiovascular: regular rate and rhythm, No edema Gastrointestinal: distended, firm, rebound or guarding, tender Musculoskeletal: nl extremities to inspection, nl gait and stance, No joint tenderness Extremities: No calf tenderness, No cyanosis Neurological: nl mental status, nl speech, nl strength Skin: nl turgor, No diaphoresis, No rash or lesions Lymph: nl lymph nodes Results Result Diagram: 07/06/17 1600 07/06/17 1600 Results 24 hrs Laboratory Tests Test 07/06/17 16:00 White Blood Count 11.1 #H Red Blood Count 3.89 L Hemoglobin 12.4 Hematocrit 37.7 Mean Corpuscular Volume 96.9 Mean Corpuscular Hemoglobin 31.9 Mean Corpuscular Hemoglobin Concent 32.9 Red Cell Distribution Width 13.1 Platelet Count 446 H Mean Platelet Volume 8.4 Neutrophils % 86.9 H Lymphocytes % 7.8 L Monocytes % 3.7 Eosinophils % 1.0 Basophils % 0.2 Nucleated Red Blood Cells % 0.0 Neutrophils # 9.6 H Lymphocytes # 0.9 Monocytes # 0.4 Eosinophils # 0.1 Basophils # 0.0 Nucleated Red Blood Cells # 0.0 Prothrombin Time 13.2 Prothrombin Time Ratio 1.0 INR International Normalized Ratio 1.00 Activated Partial Thromboplast Time 26.4 Sodium Level 138 Potassium Level 4.2 Chloride Level 101 Carbon Dioxide Level 24 Anion Gap 17 H Blood Urea Nitrogen 24 H Creatinine 1.08 H Glucose Level 95 Calcium Level 10.3 H Total Bilirubin 0.0 L Direct Bilirubin 0.00 Indirect Bilirubin 0.0 Aspartate Amino Transf (AST/SGOT) 24 Alanine Aminotransferase (ALT/SGPT) 28 Alkaline Phosphatase 85 Troponin I < 0.012 Total Protein 7.1 Albumin 4.0 Globulin 3.10 Albumin/Globulin Ratio 1.29 Lipase 164 VASU LAWLER MD Jul 06, 2017 18:25
--- NOTE | 2017-07-06 18:59 | HP ---
Date/Time of Note Date/Time of Note DATE: 07/06/17 TIME: 18:55 Assessment/Plan VTE Prophylaxis VTE Prophylaxis Intervention: other Assessment/Plan Chief Complaint/Hosp Course 62 yo female with recently diagonsed very large peptic ulcer who now presents with pneumoperitoneum likely from perforated ulcer Pneumoperitoneum from perforated ulcer: - Dr Nielsen consulted, conservative managemetn for now - IV abx - serial abd exams PUD: - PPI by IV To ICU for close monitoring Problems: HPI/ROS Admit Date/Time Admit Date/Time Hx of Present Illness 62 yo female presenting with PUD presneted with abdominal pain Patient presents with epigastric pain last month. Underwent EGD showing very large gastric ulcer. Biopsy taken, results benign. Today she presents with acute onset of severe pain in epigastrium radiatign to b/l shoulders. Underwent CT scan in ED showing pneumoperitoneum surround stomach. Dr Nielsen from surgery was consulted who recommended conservative management for now. She has been treated with abx and pain medications Patient currently comfortable PMH/Family/Social Past Surgical History Past Surgical Hx: endoscopy, other Social History Smoking Status: Current every day smoker Exam/Review of Systems Vital Signs Vitals Vital Signs Date Time Temp Pulse Resp B/P Pulse Ox O2 Delivery O2 Flow Rate FiO2 07/06/17 17:57 98.1 88 18 118/62 98 Nasal Cannula 2.0 Exam Exam calm, slightyl uncomfortable appearing RRR heart sounds normal Lungs clear, nonlabored Abdomen with voluntary guarding but no rebound, mildly tender in epigastrium Ext wtihout edema Labs Result Diagram: 07/06/17 1600 07/06/17 1600 Medications Medications Current Medications Fluconazole (Diflucan 400 Mg/ NS (Pmx)) 200 ml @ 100 mls/hr ONCE ONCE IVPB ; Start 07/06/17 at 19:00; Stop 07/06/17 at 20:59 МАРИНА GOULD MD Jul 06, 2017 18:59
[2017-07-06] MEDS ORDERED: OXYCODONE/ACETAMINOPHEN (5/325) TAB PO PRN ×2 (19:00)
[2017-07-06] MEDS ORDERED: ONDANSETRON 4 MG INJ IV PRN ×2 (19:00→23:30)
[2017-07-06] MEDS ORDERED: FENTAnyl 50 MCG/ML VIAL IV PRN ×3 (19:00)
[2017-07-06] MEDS ORDERED: ALBUTEROL 0.083% (NEB) 2.5 MG/3 ML AMP HHN PRN (19:00)
[2017-07-06] MEDS ORDERED: DEXTROSE 5%-0.45% NACL 1,000 ML IV SCH (19:00)
[2017-07-06] MEDS ORDERED: MEPERIDINE 25 MG INJ IV PRN (19:00)
[2017-07-06] MEDS ORDERED: IPRATROPIUM (NEB) 0.5 MG/2.5 ML AMP HHN PRN (19:00)
[2017-07-06] MEDS ORDERED: DIPHENHYDRAMINE 50 MG INJ IV PRN (19:00)
[2017-07-06] MEDS ORDERED: TRIMETHOBENZAMIDE 100 MG/ML VIAL IM PRN (19:00)
[2017-07-06] MEDS ORDERED: FLUCONAZOLE 400 MG/NS (PMX) 200 ML IVPB ONE (19:00)
[2017-07-06] MEDS ORDERED: hydrALAzine 20 MG INJ IV PRN (19:00)
[2017-07-06] MEDS ORDERED: MIDAZOLAM 1 MG/ML 2 ML INJ IV PRN (19:00)
[2017-07-06] MEDS ORDERED: HYDROmorphONE (0.2 MG/ML) 10ML SYG IV PRN ×3 (19:00)
[2017-07-06] MEDS ORDERED: EPHEDrine SULFATE 50 MG/5 ML SYG IV PRN (19:00)
[2017-07-06] MEDS ORDERED: LABETALOL HCL 20MG INJ IV PRN (19:00)
--- NOTE | 2017-07-06 20:34 | OPR ---
Date/Time of Note Date/Time of Note DATE: 07/06/17 TIME: 20:26 Operative Report Procedure Date: Jul 06, 2017 Preoperative Diagnosis 1. Perforated viscus 2. History of tobacco use, aspirin, noncompliance with antacids 3. Extensive peptic ulcer history Postoperative Diagnosis 1. Perforated prepyloric gastric anterior ulcer 2. History of tobacco use, aspirin, noncompliance with antacids 3. Extensive peptic ulcer history 4. Abnormal liver color and contour Operation/Procedure Performed 1. Laparoscopic repair of perforated gastric ulcer with Martín patch 2. Laparoscopic gastric ulcer which resection biopsy 3. Laparoscopic liver wedge resection biopsy 4. [place] anesthetic [place], [id number] 5. Laparoscopic guided bilateral transversus abdominis plane block Surgeon Vasu Lawler MD Log Cooker None Anesthesia Type: general (Plus local plus regional) Anesthesiologist: Emiliano Parsons M.D. Estimated Blood Loss: 0 - 10 ml's Transfusion none Specimen 1. Gastric ulcer wedge 2. Liver wedge Grafts/Implants none Tubes/Drains 19 Georgian Norman Complications none Disposition: PACU Indications Per consult note. Risks include but are not limited to bleeding, infection, abscess, seroma, leak , damage to intestines or any intra-abdominal/intrapelvic structures, hernia formation, chronic pain, need for re-operations or further surgeries, SC, stroke , PE, DVT, pneumonia, organ failures, or even . Procedure Description Patient was brought into the OR, placed supine on the operating table, SCDs were placed, all pressure points were well-padded, and after induction, patient was prepped and draped in usual sterile fashion and timeout was performed. She had received preoperative antibiotics. Local anesthetic was injected at all incision sites. Incision was made in the left upper quadrant and using an Optiview port and the 5 mm 0 scope abdomen was entered and insufflated to 15 mmHg with CO2. Laparoscopy was performed. There was gastric contents just by the liver. Under direct visualization 2 other 5 mm ports were placed in the right and left upper quadrants. Investigation of the abdomen identified prepyloric gastric perforation. That area was also thickened. Abdomen was washed out and all the fluid was suctioned out immediately. By the end of the operation over 3 L of fluid were used to irrigate the abdomen to clear suctioning fluid. There was fibrinous exudative tissue that was stuck to the liver and the stomach. The liver also looked somewhat discolored and without smooth surface. Liver wedge resection was obtained with electrocautery and scissor and complete hemostasis is obtained. That specimen was sent to pathology. To rule out gastric carcinoma a wedge resection off of the ulcer was performed, full thickness, and hemostasis was obtained with electrocautery. That was also sent to pathology. Gastric ulcer wedge biopsy was performed and sent to pathology. Hemostasis obtained. 2-0 Vicryl suture was used transmurally to reapproximate the edges of the ulcer and to also control bleeding. 2-0 silk sutures were used on either side of the perforation 3. Then a piece of omentum was pulled up over the perforation site and the 2-0 silk sutures were tied securing the omentum to that area. I made sure not to choke the omentum and cause necrosis. This completed the gram patch procedure. To allow further drainage from the abdomen to 19 Georgian Norman was placed through the left upper quadrant port site. The drain was at the surgical site and the parahepatic area and secured with 2-0 nylon suture. Ports and CO2 were removed under direct visualization. Wounds were thoroughly irrigated. Skin was closed with 4-0 Monocryl subcuticular fashion. Dermabond was applied. Gauze and dressing were applied on the drain. Patient was extubated and transferred to recovery room in stable condition. All counts were correct at the end of the operation 2. VASU LAWLER MD Jul 06, 2017 20:34
[2017-07-06] MEDS: ACETAMINOPHEN 1000MG/100ML IV 100 ML IVPB SCH (20:57)
[2017-07-06] MEDS: D5W-0.45 NACL + KCL 20 MEQ 1,000 ML IV SCH (21:39)
[2017-07-06] MEDS: PIPER-TAZO 3.375 GM IV (PMX) 50 ML IVPB SCH (22:36)
[2017-07-06] MEDS: ONDANSETRON 4 MG INJ IV PRN (23:36)
[2017-07-06] MEDS: HYDROmorphONE 0.5 MG/0.5 ML SYG IV PRN (23:36)
[2017-07-07] VITALS (11 sets, daily range): BP systolic 98–119; BP diastolic 49–60; PULSE 71–76; RESP 16–20
[2017-07-07] MEDS ORDERED: PIPER-TAZO 3.375 GM IV (PMX) 50 ML IVPB SCH (02:00)
[2017-07-07 02:05] LABS: ADD UMIC YES; UR ASCORBIC ACID NEGATIVE (NEGATIVE); UR BILIRUBIN (Dip) NEGATIVE (NEGATIVE); UR BLOOD (Dip) 2+ mg/dL (NEGATIVE); UR CLARITY CLEAR (CLEAR); UR COLOR YELLOW (YELLOW); UR GLUCOSE (Dip) NEGATIVE (NEGATIVE); UR KETONES (Dip) NEGATIVE (NEGATIVE); UR LEUKOCYTE ESTERASE (Dip) NEGATIVE Leu/ul (NEGATIVE); UR MUCUS FEW /HPF (NONE SEEN); UR NITRITE (Dip) NEGATIVE (NEGATIVE); UR RBC 14 /HPF (0-5); UR SPECIFIC GRAVITY (Dip) 1.033 (1.003-1.030); UR TOTAL PROTEIN (Dip) NEGATIVE (NEGATIVE); UR UROBILINOGEN (Dip) NEGATIVE (NEGATIVE)
[2017-07-07] MEDS: NICOTINE (7 MG/24 HR) PATCH TRANSDERM SCH ×2 (02:41→10:14)
[2017-07-07] MEDS: ACETAMINOPHEN 1000MG/100ML IV 100 ML IVPB SCH ×4 (02:41→20:40)
[2017-07-07] MEDS: PANTOPRAZOLE 40 MG INJ IV SCH ×2 (05:09→18:39)
[2017-07-07] MEDS: PIPER-TAZO 3.375 GM IV (PMX) 50 ML IVPB SCH ×3 (05:09→23:01)
[2017-07-07] MEDS: D5W-0.45 NACL + KCL 20 MEQ 1,000 ML IV SCH ×2 (05:10→16:44)
[2017-07-07] MEDS: ONDANSETRON 4 MG INJ IV PRN ×3 (05:28→20:45)
[2017-07-07] MEDS: HYDROmorphONE 0.5 MG/0.5 ML SYG IV PRN ×3 (05:29→20:46)
[2017-07-07 09:15] LABS: BASOPHILS % 0.2 % (0.0-2.0); EOSINOPHILS # 0.1 10^3/ul (0.0-0.5); EOSINOPHILS % 1.2 % (0.0-7.0); HEMATOCRIT 30.2 % (37.0-47.0); HEMOGLOBIN 9.6 g/dl (12.0-16.0); LYMPHOCYTES # 0.8 10^3/ul (0.8-2.9); LYMPHOCYTES % 8.4 % (15.0-51.0); MEAN CORPUSCULAR HEMOGLOBIN 31.4 pg (29.0-33.0); MEAN CORPUSCULAR HGB CONC 31.8 g/dl (32.0-37.0); MEAN CORPUSCULAR VOLUME 98.7 fl (82.0-101.0); MEAN PLATELET VOLUME 8.6 fl (7.4-10.4); MONOCYTE # 0.7 10^3/ul (0.3-0.9); MONOCYTES % 6.7 % (0.0-11.0); NEUTROPHIL # 8.4 10^3/ul (1.6-7.5); NEUTROPHILS % 83.1 % (39.0-77.0); PLATELET COUNT 338 10^3/UL (140-415); RED BLOOD COUNT 3.06 10^6/ul (4.20-5.40); RED CELL DISTRIBUTION WIDTH 13.5 % (11.5-14.5); WHITE BLOOD COUNT 10.1 10^3/ul (4.8-10.8)
[2017-07-07 10:00] LABS: ALBUMIN 2.9 g/dl (3.3-4.9); ALBUMIN/GLOBULIN RATIO 1.07; BILIRUBIN,INDIRECT 0.2 mg/dl (0-1.1); BILIRUBIN,TOTAL 0.2 mg/dl (0.2-1.3); CALCIUM 8.3 mg/dl (8.4-10.2); CREATININE 0.81 mg/dl (0.44-1.00); POTASSIUM 4.8 mmol/L (3.5-5.1); TOTAL PROTEIN 5.6 g/dl (6.1-8.1)
--- NOTE | 2017-07-07 12:06 | CONS ---
Date/Time of Note Date/Time of Note DATE: 07/07/17 TIME: 11:46 Assessment/Plan Assessment/Plan Chief Complaint/Hosp Course Assessment: Perforated viscous secondary to PUD Plan: Pain management Antiemetic medication as needed Monitor H&H Diet per surgery Patient seen in collaboration with Dr. Almazan Problems: Consultation Date/Type/Reason Admit Date/Time Hx of Present Illness History of Present Illness: This is a 62 yo female with past medical history of PUD. Presented to the ER with abdominal pain. She notes pain is localized to the epigastric area and has been progressive for the past month. Pain is described as being sharp relieved with pain medication, not aggravated by anything in particular. A previous EGD showed a very large gastric ulcer, bx were taken, benign. A CT scan was obtained and revealed mild thickening of the distal gastric body/antrum with adjacent pockets of gas and mild inflammatory changes suggesting site of the perforation, mild wall thickening of the hepatic flexure and proximal transverse colon which could be reactive, mildly dilated common bile duct with normal distal tapering, scattered colonic diverticula without evidence of acute diverticulitis, aortoiliac atherosclerosis, and moderate stool throughout the colon. Correlate with constipation. Surgery has been consulted she is s/p laparoscopic repair of perforated gastric ulcer with Martín patch, gastric ulcer with resection biopsy,and liver wedge resection biopsy. GI will monitor, endoscopies are not warranted at this time as patient is considered very high risk and would not benefit an EGD or colonoscopy at this time. Constitutional: no complaints, requiring IVF Eyes: no complaints ENT: other (NGT) Respiratory: no complaints Cardiovascular: no complaints Gastrointestinal: decreased appetite, nausea, pain Genitourinary: no complaints Musculoskeletal: no complaints Skin: bruising Past Surgical History Past Surgical Hx: endoscopy, other Social History Alcohol Use: none Smoking Status: Current every day smoker Drug Use: none Exam/Review of Systems Vital Signs Vitals Vital Signs Date Time Temp Pulse Resp B/P Pulse Ox O2 Delivery O2 Flow Rate FiO2 07/07/17 11:41 98.0 74 16 105/49 93 07/06/17 22:00 Nasal Cannula 2.0 Intake and Output 07/06/17 07/06/17 07/07/17 14:59 22:59 06:59 Intake Total 900 ml Output Total 220 ml 1236 ml Balance -220 ml -336 ml Exam Constitutional: alert, oriented Psych: no complaints Head: atraumatic, normocephalic Eyes: nl conjunctiva ENMT: other (NGT) Neck: supple Respiratory: diminished breath sounds Cardiovascular: regular rate and rhythm Gastrointestinal: bowel sounds (hypoactive), surgical scars, tender Genitourinary - Female: nl adnexae Results Result Diagram: 07/07/17 0821 07/07/17 0821 Results 24 hrs Laboratory Tests Test 07/06/17 16:00 07/06/17 21:11 07/07/17 08:21 White Blood Count 11.1 #H 10.1 Red Blood Count 3.89 L 3.06 #L Hemoglobin 12.4 9.6 #L Hematocrit 37.7 30.2 L Mean Corpuscular Volume 96.9 98.7 Mean Corpuscular Hemoglobin 31.9 31.4 Mean Corpuscular Hemoglobin Concent 32.9 31.8 L Red Cell Distribution Width 13.1 13.5 Platelet Count 446 H 338 # Mean Platelet Volume 8.4 8.6 Neutrophils % 86.9 H 83.1 H Lymphocytes % 7.8 L 8.4 L Monocytes % 3.7 6.7 Eosinophils % 1.0 1.2 Basophils % 0.2 0.2 Nucleated Red Blood Cells % 0.0 0.0 Neutrophils # 9.6 H 8.4 H Lymphocytes # 0.9 0.8 Monocytes # 0.4 0.7 Eosinophils # 0.1 0.1 Basophils # 0.0 0.0 Nucleated Red Blood Cells # 0.0 0.0 Prothrombin Time 13.2 Prothrombin Time Ratio 1.0 INR International Normalized Ratio 1.00 Activated Partial Thromboplast Time 26.4 Sodium Level 138 140 Potassium Level 4.2 4.8 Chloride Level 101 107 Carbon Dioxide Level 24 26 Anion Gap 17 H 12 Blood Urea Nitrogen 24 H 14 # Creatinine 1.08 H 0.81 Glucose Level 95 109 Calcium Level 10.3 H 8.3 L Total Bilirubin 0.0 L 0.2 Direct Bilirubin 0.00 0.00 Indirect Bilirubin 0.0 0.2 Aspartate Amino Transf (AST/SGOT) 24 34 Alanine Aminotransferase (ALT/SGPT) 28 40 Alkaline Phosphatase 85 58 Troponin I < 0.012 Total Protein 7.1 5.6 #L Albumin 4.0 2.9 #L Globulin 3.10 2.70 Albumin/Globulin Ratio 1.29 1.07 Lipase 164 Urine Color YELLOW Urine Clarity CLEAR Urine pH 5.0 Urine Specific [place] 1.033 H Urine Ketones NEGATIVE Urine Nitrite NEGATIVE Urine Bilirubin NEGATIVE Urine Urobilinogen NEGATIVE Urine Leukocyte Esterase NEGATIVE Urine Microscopic RBC 14 H Urine Microscopic WBC 1 Urine Mucus FEW A Urine Hemoglobin 2+ H Urine Glucose NEGATIVE Urine Total Protein NEGATIVE Medications Medications Current Medications Pantoprazole 40 mg 40 mg BID@06,18 IV Last administered on 07/07/17 05:09; Admin Dose 40 MG; Start 07/07/17 at 06:00 Piperacillin Sod/ Tazobactam Sod (Zosyn 3.375gm/ 50 ml (Pmx)) 50 ml @ 100 mls/ hr Q8 IVPB Last administered on 07/07/17 05:09; Admin Dose 100 MLS/HR; Start 07/06/17 at 23:00 Ondansetron HCl 4 mg 4 mg Q6H PRN IV NAUSEA AND/OR VOMITING Last administered on 07/07/17 11:34; Admin Dose 4 MG; Start 07/06/17 at 20:30 Potassium Chloride/Dextrose/ Sod Cl 1,000 ml @ 100 mls/hr Q10H IV Last administered on 07/06/17 21:39; Admin Dose 100 MLS/HR; Start 07/06/17 at 20: 08 Acetaminophen (Ofirmev 1000mg/ 100ml Iv) 100 ml @ 400 mls/hr Q6H IVPB Last administered on 07/07/17 10:13; Admin Dose 400 MLS/HR; Start 07/06/17 at 20: 30 Nicotine (Nicoderm 7 Mg/ 24 Hr) 1 patch DAILY TRANSDERM Last administered on 10:14; Admin Dose 1 PATCH; Start 07/06/17 at 23:00 Hydromorphone HCl (Dilaudid) 0.5 mg Q4H PRN IV PAIN Last administered on 11:35; Admin Dose 0.5 MG; Start 07/06/17 at 23:30 Ondansetron HCl (Zofran Inj) 4 mg Q6H PRN IV NAUSEA AND/OR VOMITING; Start at 23:30 Influenza Virus Vaccine (Fluzone) 0.5 ml ONCE ONCE IM* ; Start 07/08/17 at 09:00 ; Stop 07/08/17 at 09:01 Copies To: CC: ANGELLA ALMAZAN MD, VICTORIA Jul 07, 2017 11:56
--- NOTE | 2017-07-07 13:49 | PN ---
Date/Time of Note Date/Time of Note DATE: 07/07/17 TIME: 13:37 Assessment/Plan Lines/Catheters IV Catheter Type (from [facility]): Peripheral IV Anderson in Place (from [facility]): Yes Assessment/Plan Chief Complaint/Hosp Course 1. Perforated prepyloric gastric anterior ulcer s/p laparoscopic repair of perforated gastric ulcer with Martín patch & gastric ulcer with resection biopsy -ivf -iv abx -ppi -npo -follow path -is -is pack -ambulate -ngt to lis; clamp when ambulating 2. PUD, extensive hx; follow path -rule out h. pylori -ppi -stop smoking -stop ASA -regular antacids use 3. Acute thrombocytosis secondary to above: normalized -Monitor 4. Acute renal insufficiency secondary to above: resolved -Judicious fluid management -Treat infection as above -Avoid nephrotoxic agents as possible 5. Noncompliance -Highly encouraged to comply with her treatments to avoid further injury 6. Mild leukocytosis: 2/2 #1 normalized 7. Anemia: -monitor -transfuse as needed 8. Hypoalbuminemia with hypocalcemia: multifactorial -optimize nutrition -as above Thank you. Patient seen and examined in collaboration with Dr. Wallace Nielsen. Problems: Subjective 24 Hr Interval Summary NG with min drainage. Bigg with serosanguineous drainage. Feels better. Min tenderness in abdominal area. no bruising/drainage/discoloration. No fevers, chills, sob, congested cough, cp, palpitations, akhtar, dizziness, n/v/d/dysuria. Exam/Review of Systems Vital Signs Vitals Vital Signs Date Time Temp Pulse Resp B/P Pulse Ox O2 Delivery O2 Flow Rate FiO2 07/07/17 12:00 76 07/07/17 11:41 98.0 16 105/49 93 07/06/17 22:00 Nasal Cannula 2.0 Intake and Output 07/06/17 07/06/17 07/07/17 14:59 22:59 06:59 Intake Total 900 ml Output Total 220 ml 1236 ml Balance -220 ml -336 ml Exam Free Text/Dictation Constitutional: alert, oriented, No distress (But uncomfortable) Psych: anxiety, No confusion Head: atraumatic, normocephalic Eyes: EOMI, PERRL, nl conjunctiva, No icteric ENMT: nl external ears & nose, nl lips & teeth, No mucosa pink and moist Neck: non-tender, supple, No jvd Respiratory: normal air movement, No congested cough, No diminished breath sounds, No labored breathing Cardiovascular: regular rate and rhythm, No edema Gastrointestinal: min distended, rebound or guarding, Bigg drain-serosanguineous , incision sites dry without drainage/bruising/discoloration Musculoskeletal: nl extremities to inspection, nl gait and stance, No joint tenderness Extremities: No calf tenderness, No cyanosis Neurological: nl mental status, nl speech, nl strength Skin: nl turgor, No diaphoresis, No rash or lesions Lymph: nl lymph nodes Results Result Diagram: 07/07/17 0807/07/17 0821 JACKLYN TORO NP Jul 07, 2017 13:48
--- NOTE | 2017-07-07 14:28 | PN ---
Date/Time of Note Date/Time of Note DATE: 07/07/17 TIME: 14:26 Assessment/Plan VTE Prophylaxis VTE Prophylaxis Intervention: heparin Lines/Catheters IV Catheter Type (from Nrs): Peripheral IV Urinary Cath still in place: Yes Reason Cath still needed: urinary retention Assessment/Plan Chief Complaint/Hosp Course 62 yo female with recently diagonsed very large peptic ulcer who now presents with pneumoperitoneum likely from perforated ulcer Pneumoperitoneum from perforated ulcer: - s/p surgical repair yesterday - IV abx - Management per Dr Morales HOWELL: - PPI by IV MARIAM: - Resolved with fluids Problems: Subjective 24 Hr Interval Summary Free Text/Dictation Underwent laproscopic repair of perforated ulcer yesterday today complains of pain from NG tube and pain, nausea Exam/Review of Systems Vital Signs Vitals Vital Signs Date Time Temp Pulse Resp B/P Pulse Ox O2 Delivery O2 Flow Rate FiO2 07/07/17 12:00 76 07/07/17 11:41 98.0 16 105/49 93 07/06/17 22:00 Nasal Cannula 2.0 Intake and Output 07/06/17 07/06/17 07/07/17 14:59 22:59 06:59 Intake Total 900 ml Output Total 220 ml 1236 ml Balance -220 ml -336 ml Exam Constitutional: alert, oriented, well developed Psych: nl mood/affect, no complaints Head: atraumatic, normocephalic Eyes: EOMI, PERRL, nl conjunctiva, nl lids, nl sclera ENMT: nl external ears & nose, nl lips & teeth, nl nasal mucosa & septum Neck: non-tender, supple Respiratory: clear to auscultation, normal air movement Cardiovascular: nl pulses, regular rate and rhythm Gastrointestinal: nl liver, spleen, non-tender, soft Musculoskeletal: nl extremities to inspection, nl gait and stance Extremities: normal pulses Neurological: THEAT[employer] II-XII intact, nl mental status, nl speech, nl strength Skin: nl turgor, No rash or lesions Lymph: nl lymph nodes Results Result Diagram: 07/07/1782007/07/17820 Results 24 hrs Laboratory Tests Test 07/06/17 16:00 07/06/17 21:11 07/07/17 08:21 White Blood Count 11.1 #H 10.1 Red Blood Count 3.89 L 3.06 #L Hemoglobin 12.4 9.6 #L Hematocrit 37.7 30.2 L Mean Corpuscular Volume 96.9 98.7 Mean Corpuscular Hemoglobin 31.9 31.4 Mean Corpuscular Hemoglobin Concent 32.9 31.8 L Red Cell Distribution Width 13.1 13.5 Platelet Count 446 H 338 # Mean Platelet Volume 8.4 8.6 Neutrophils % 86.9 H 83.1 H Lymphocytes % 7.8 L 8.4 L Monocytes % 3.7 6.7 Eosinophils % 1.0 1.2 Basophils % 0.2 0.2 Nucleated Red Blood Cells % 0.0 0.0 Neutrophils # 9.6 H 8.4 H Lymphocytes # 0.9 0.8 Monocytes # 0.4 0.7 Eosinophils # 0.1 0.1 Basophils # 0.0 0.0 Nucleated Red Blood Cells # 0.0 0.0 Prothrombin Time 13.2 Prothrombin Time Ratio 1.0 INR International Normalized Ratio 1.00 Activated Partial Thromboplast Time 26.4 Sodium Level 138 140 Potassium Level 4.2 4.8 Chloride Level 101 107 Carbon Dioxide Level 24 26 Anion Gap 17 H 12 Blood Urea Nitrogen 24 H 14 # Creatinine 1.08 H 0.81 Glucose Level 95 109 Calcium Level 10.3 H 8.3 L Total Bilirubin 0.0 L 0.2 Direct Bilirubin 0.00 0.00 Indirect Bilirubin 0.0 0.2 Aspartate Amino Transf (AST/SGOT) 24 34 Alanine Aminotransferase (ALT/SGPT) 28 40 Alkaline Phosphatase 85 58 Troponin I < 0.012 Total Protein 7.1 5.6 #L Albumin 4.0 2.9 #L Globulin 3.10 2.70 Albumin/Globulin Ratio 1.29 1.07 Lipase 164 Urine Color YELLOW Urine Clarity CLEAR Urine pH 5.0 Urine Specific [place] 1.033 H Urine Ketones NEGATIVE Urine Nitrite NEGATIVE Urine Bilirubin NEGATIVE Urine Urobilinogen NEGATIVE Urine Leukocyte Esterase NEGATIVE Urine Microscopic RBC 14 H Urine Microscopic WBC 1 Urine Mucus FEW A Urine Hemoglobin 2+ H Urine Glucose NEGATIVE Urine Total Protein NEGATIVE Medications Medications Current Medications Pantoprazole 40 mg 40 mg BID@06,18 IV Last administered on 07/07/17t 05:09; Admin Dose 40 MG; Start 07/07/17 at 06:00 Piperacillin Sod/ Tazobactam Sod (Zosyn 3.375gm/ 50 ml (Pmx)) 50 ml @ 100 mls/ hr Q8 IVPB Last administered on 07/07/17 13:58; Admin Dose 100 MLS/HR; Start 07/06/17 at 23:00 Ondansetron HCl 4 mg 4 mg Q6H PRN IV NAUSEA AND/OR VOMITING Last administered on 07/07/17 11:34; Admin Dose 4 MG; Start 07/06/17 at 20:30 Potassium Chloride/Dextrose/ Sod Cl 1,000 ml @ 100 mls/hr Q10H IV Last administered on 07/06/17 21:39; Admin Dose 100 MLS/HR; Start 07/06/17 at 20: 08 Acetaminophen (Ofirmev 1000mg/ 100ml Iv) 100 ml @ 400 mls/hr Q6H IVPB Last administered on 07/07/17 10:13; Admin Dose 400 MLS/HR; Start 07/06/17 at 20: 30 Nicotine (Nicoderm 7 Mg/ 24 Hr) 1 patch DAILY TRANSDERM Last administered on 10:14; Admin Dose 1 PATCH; Start 07/06/17 at 23:00 Hydromorphone HCl (Dilaudid) 0.5 mg Q4H PRN IV PAIN Last administered on 11:35; Admin Dose 0.5 MG; Start 07/06/17 at 23:30 Ondansetron HCl (Zofran Inj) 4 mg Q6H PRN IV NAUSEA AND/OR VOMITING; Start at 23:30 Influenza Virus Vaccine (Fluzone) 0.5 ml ONCE ONCE IM* ; Start 07/08/17 at 09:00 ; Stop 07/08/17 at 09:01 МАРИНА GOULD MD Jul 07, 2017 14:27
[2017-07-08] VITALS (12 sets, daily range): BP systolic 111–138; BP diastolic 56–65; PULSE 63–77; RESP 16–19
[2017-07-08] MEDS: ACETAMINOPHEN 1000MG/100ML IV 100 ML IVPB SCH ×4 (00:46→20:30)
[2017-07-08] MEDS: D5W-0.45 NACL + KCL 20 MEQ 1,000 ML IV SCH ×3 (00:46→20:57)
[2017-07-08] MEDS: NICOTINE (7 MG/24 HR) PATCH TRANSDERM SCH (00:48)
[2017-07-08] MEDS: ONDANSETRON 4 MG INJ IV PRN ×4 (00:48→15:06)
[2017-07-08] MEDS: HYDROmorphONE 0.5 MG/0.5 ML SYG IV PRN ×4 (00:54→19:06)
[2017-07-08] MEDS: PIPER-TAZO 3.375 GM IV (PMX) 50 ML IVPB SCH ×3 (05:08→20:57)
[2017-07-08] MEDS: PANTOPRAZOLE 40 MG INJ IV SCH ×2 (05:08→17:49)
[2017-07-08] MEDS ORDERED: INFLUENZA VIRUS VACCINE 0.5 ML (DISPENSING) IM* ONE (09:00)
[2017-07-08] MEDS: ENOXAPARIN 30 MG/0.3 ML SYG SC SCH (09:00)
[2017-07-08] MEDS: NICOTINE (14 MG/24 HR) PATCH TRANSDERM SCH (10:27)
--- NOTE | 2017-07-08 11:25 | PN ---
Date/Time of Note Date/Time of Note DATE: 07/08/17 TIME: : Assessment/Plan VTE Prophylaxis VTE Prophylaxis Intervention: SCD's Lines/Catheters IV Catheter Type (from Nrsg): Peripheral IV Urinary Cath still in place: Yes Reason Cath still needed: other (indicate) (monitor output) Assessment/Plan Chief Complaint/Hosp Course Assessment: Perforated viscous secondary to PUD Plan: Pain management as needed Antiemetic medication as needed Monitor H&H Diet per surgery Patient seen in collaboration with Dr. Almazan Subjective: Course reviewed with nursing staff Patient interviewed and examined All labs, imaging and other results reviewed The patient feels better today, continues with pain management, NGT in place. no significant events over night. PHYSICAL EXAMINATION: GENERAL: Well developed, well nourished, alert & oriented x 3, in no acute distress SKIN: No lesions, no stigmata chronic liver disease, no evidence of bleeding diathesis, surgical incision, j.p. drain LYMPHATIC: No palpable lymphadenopathy. HEAD: Normocephalic, atraumatic, no tenderness. EYES: Pupils equal reactive to light and accommodation, full extraocular movements, sclera clear, non-icteric, no discharge. EARS/NOSE AND THROAT: Ears normal, nose normal, oropharynx normal, oral membranes well hydrated without lesions. NECK: Supple, no masses, thyroid normal, CHEST: Inspection within normal limits. CARDIOVASCULAR: Heart: Regular rate and rhythm, RESPIRATORY: Lungs clear to auscultations GASTROINTESTINAL AND LIVER: Abdomen: Soft, tenderness, slightly distended, no hernias, no masses, no organomegaly, no ascites, , normoactive bowel sounds. Rectal: Deferred. GENITOURINARY:Female genitalia within normal limits. Problems: Exam/Review of Systems Vital Signs Vitals Vital Signs Date Time Temp Pulse Resp B/P Pulse Ox O2 Delivery O2 Flow Rate FiO2 07/08/17 08:25 73 07/08/17 08:19 98.2 17 120/59 95 07/07/17 20:00 Nasal Cannula 2.0 Intake and Output 07/07/17 07/07/17 07/08/17 15:00 23:00 07:00 Intake Total 100 ml 900 ml Output Total 85 ml 920 ml 1380 ml Balance -85 ml -820 ml -480 ml Results Result Diagram: 11/30/17 0821 11/30/17 0821 Medications Medications Current Medications Pantoprazole 40 mg 40 mg BID@06,18 IV Last administered on 07/08/17 05:08; Admin Dose 40 MG; Start 07/07/17 at 06:00 Piperacillin Sod/ Tazobactam Sod 50 ml @ 100 mls/hr Q8 IVPB Last administered on 07/08/17 05:08; Admin Dose 100 MLS/HR; Start 07/06/17 at 23:00 Potassium Chloride/Dextrose/ Sod Cl 1,000 ml @ 100 mls/hr Q10H IV Last administered on 07/07/17 16:44; Admin Dose 100 MLS/HR; Start 07/06/17 at 20: 08 Acetaminophen (Ofirmev 1000mg/ 100ml Iv) 100 ml @ 400 mls/hr Q6H IVPB Last administered on 07/08/17 10:25; Admin Dose 400 MLS/HR; Start 07/06/17 at 20:30 Hydromorphone HCl (Dilaudid) 0.5 mg Q4H PRN IV PAIN Last administered on 10:44; Admin Dose 0.5 MG; Start 07/06/17 at 23:30 Enoxaparin Sodium (Lovenox) 30 mg DAILY SC ; Start 07/08/17 at 09:00 Ondansetron HCl (Zofran Inj) 4 mg Q4 PRN IV NAUSEA AND/OR VOMITING Last administered on 07/08/17 10:31; Admin Dose 4 MG; Start 07/07/17 at 21:00 Nicotine (Nicoderm 14 Mg/ 24hr) 1 patch DAILY TRANSDERM Last administered on 10:27; Admin Dose 1 PATCH; Start 07/08/17 at 09:00 RICHARD RANDLE Jul 08, 2017 11:25
--- NOTE | 2017-07-08 11:53 | PN ---
Date/Time of Note Date/Time of Note DATE: 07/08/17 TIME: 11:50 Assessment/Plan Lines/Catheters IV Catheter Type (from [facility]): Peripheral IV Anderson in Place (from [facility]): Yes Assessment/Plan Chief Complaint/Hosp Course 1. Perforated prepyloric gastric anterior ulcer s/p laparoscopic repair of perforated gastric ulcer with Martín patch & gastric ulcer with resection biopsy -ivf -iv abx -ppi -npo -follow path -is -is pack -ambulate -ngt to lis; clamp when ambulating -ugi tomorrow 2. PUD, extensive hx; follow path -rule out h. pylori -ppi -stop smoking -stop ASA -regular antacids use 3. Acute thrombocytosis secondary to above: normalized -Monitor 4. Acute renal insufficiency secondary to above: resolved -Judicious fluid management -Treat infection as above -Avoid nephrotoxic agents as possible 5. Noncompliance -Highly encouraged to comply with her treatments to avoid further injury 6. Mild leukocytosis: 2/2 #1 normalized 7. Anemia: -monitor -transfuse as needed 8. Hypoalbuminemia with hypocalcemia: multifactorial -optimize nutrition -as above Thank you. Patient seen and examined in collaboration with Dr. Wallace Nielsen. Problems: Subjective 24 Hr Interval Summary Feels well. Still with tenderness in abdomen. BIGG with serosanguineous drainage. ng with min output. +flatus. No fevers, chills, sob, congested cough, cp, palpitations, akhtar, dizziness, n/v/d/dysuria. Exam/Review of Systems Vital Signs Vitals Vital Signs Date Time Temp Pulse Resp B/P Pulse Ox O2 Delivery O2 Flow Rate FiO2 07/08/17 08:25 73 07/08/17 08:19 98.2 17 120/59 95 07/07/17 20:00 Nasal Cannula 2.0 Intake and Output 07/07/17 07/07/17 07/08/17 15:00 23:00 07:00 Intake Total 100 ml 900 ml Output Total 85 ml 920 ml 1380 ml Balance -85 ml -820 ml -480 ml Exam Free Text/Dictation Constitutional: alert, oriented, No distress (But uncomfortable) Psych: anxiety, No confusion Head: atraumatic, normocephalic Eyes: EOMI, PERRL, nl conjunctiva, No icteric ENMT: nl external ears & nose, nl lips & teeth, No mucosa pink and moist Neck: non-tender, supple, No jvd Respiratory: normal air movement, No congested cough, No diminished breath sounds, No labored breathing Cardiovascular: regular rate and rhythm, No edema Gastrointestinal: non distended, no rebound or guarding, Bigg drain- serosanguineous, incision sites dry without drainage/bruising/discoloration, improved tenderness Musculoskeletal: nl extremities to inspection, nl gait and stance, No joint tenderness Extremities: No calf tenderness, No cyanosis Neurological: nl mental status, nl speech, nl strength Skin: nl turgor, No diaphoresis, No rash or lesions Lymph: nl lymph nodes Results Result Diagram: 07/07/1782007/07/17820 JACKLYN TORO NP Jul 08, 2017 11:53
--- NOTE | 2017-07-08 13:02 | PN ---
Date/Time of Note Date/Time of Note DATE: 07/08/17 TIME: 13:01 Assessment/Plan VTE Prophylaxis VTE Prophylaxis Intervention: LMWH Lines/Catheters IV Catheter Type (from [facility]): Peripheral IV Urinary Cath still in place: Yes Reason Cath still needed: urinary retention Assessment/Plan Chief Complaint/Hosp Course 62 yo female with recently diagonsed very large peptic ulcer who now presents with pneumoperitoneum likely from perforated ulcer Pneumoperitoneum from perforated ulcer: - s/p surgical repair 07/07 -> omar patch + biopsy - IV abx, NG tube. Endoscopy planned - Management per Dr Nielsen PUD: - PPI by IV - Advised against NSAIDs permanently MARIAM: - Resolved with fluids Tobacco use d/o: - Counseled to stop smoking Discharge when stable Problems: Subjective 24 Hr Interval Summary Free Text/Dictation Doing well Major complaint is NG tube Exam/Review of Systems Vital Signs Vitals Vital Signs Date Time Temp Pulse Resp B/P Pulse Ox O2 Delivery O2 Flow Rate FiO2 07/08/17 12:17 67 07/08/17 12:04 98.0 16 111/56 93 07/07/17 20:00 Nasal Cannula 2.0 Intake and Output 07/07/17 07/07/17 07/08/17 15:00 23:00 07:00 Intake Total 100 ml 900 ml Output Total 85 ml 920 ml 1380 ml Balance -85 ml -820 ml -480 ml Exam Constitutional: alert, oriented, well developed Psych: nl mood/affect, no complaints Head: atraumatic, normocephalic Eyes: EOMI, PERRL, nl conjunctiva, nl lids, nl sclera ENMT: nl external ears & nose, nl lips & teeth, nl nasal mucosa & septum Neck: non-tender, supple Respiratory: clear to auscultation, normal air movement Cardiovascular: nl pulses, regular rate and rhythm Gastrointestinal: nl liver, spleen, non-tender, soft Musculoskeletal: nl extremities to inspection, nl gait and stance Extremities: normal pulses Neurological: [employer] II-XII intact, nl mental status, nl speech, nl strength Skin: nl turgor, No rash or lesions Lymph: nl lymph nodes Results Result Diagram: 07/07/1782007/07/17820 Medications Medications Current Medications Pantoprazole 40 mg 40 mg BID@06,18 IV Last administered on 07/08/17 05:08; Admin Dose 40 MG; Start 07/07/17 at 06:00 Piperacillin Sod/ Tazobactam Sod 50 ml @ 100 mls/hr Q8 IVPB Last administered on 07/08/17 05:08; Admin Dose 100 MLS/HR; Start 07/06/17 at 23:00 Potassium Chloride/Dextrose/ Sod Cl 1,000 ml @ 100 mls/hr Q10H IV Last administered on 07/08/17 12:00; Admin Dose 100 MLS/HR; Start 07/06/17 at 20:08 Acetaminophen (Ofirmev 1000mg/ 100ml Iv) 100 ml @ 400 mls/hr Q6H IVPB Last administered on 07/08/17 10:25; Admin Dose 400 MLS/HR; Start 07/06/17 at 20:30 Hydromorphone HCl (Dilaudid) 0.5 mg Q4H PRN IV PAIN Last administered on 10:44; Admin Dose 0.5 MG; Start 07/06/17 at 23:30 Enoxaparin Sodium (Lovenox) 30 mg DAILY SC ; Start 07/08/17 at 09:00 Ondansetron HCl (Zofran Inj) 4 mg Q4 PRN IV NAUSEA AND/OR VOMITING Last administered on 07/08/17 10:31; Admin Dose 4 MG; Start 07/07/17 at 21:00 Nicotine (Nicoderm 14 Mg/ 24hr) 1 patch DAILY TRANSDERM Last administered on 10:27; Admin Dose 1 PATCH; Start 07/08/17 at 09:00 МАРИНА GOULD MD Jul 08, 2017 13:02
[2017-07-08] MEDS: ZOLPIDEM 5 MG TAB PO PRN (23:39)
[2017-07-09] VITALS (11 sets, daily range): BP systolic 113–141; BP diastolic 57–67; PULSE 60–81; RESP 16–20
[2017-07-09] MEDS: ACETAMINOPHEN 1000MG/100ML IV 100 ML IVPB SCH ×4 (02:30→21:36)
[2017-07-09] MEDS: ONDANSETRON 4 MG INJ IV PRN ×2 (02:50→18:07)
[2017-07-09] MEDS: HYDROmorphONE 0.5 MG/0.5 ML SYG IV PRN ×3 (02:57→19:38)
[2017-07-09] MEDS: PIPER-TAZO 3.375 GM IV (PMX) 50 ML IVPB SCH ×3 (06:29→21:36)
[2017-07-09] MEDS: PANTOPRAZOLE 40 MG INJ IV SCH ×2 (06:29→18:05)
[2017-07-09] MEDS: D5W-0.45 NACL + KCL 20 MEQ 1,000 ML IV SCH ×2 (08:26→18:06)
[2017-07-09] MEDS: NICOTINE (14 MG/24 HR) PATCH TRANSDERM SCH (08:27)
[2017-07-09] MEDS: ENOXAPARIN 30 MG/0.3 ML SYG SC SCH (08:36)
--- NOTE | 2017-07-09 15:26 | PN ---
Date/Time of Note Date/Time of Note DATE: 07/09/17 TIME: 15:25 Assessment/Plan VTE Prophylaxis VTE Prophylaxis Intervention: LMWH Lines/Catheters IV Catheter Type (from [facility]): Peripheral IV Urinary Cath still in place: No Assessment/Plan Chief Complaint/Hosp Course 62 yo female with recently diagonsed very large peptic ulcer who now presents with pneumoperitoneum likely from perforated ulcer Pneumoperitoneum from perforated ulcer: - s/p surgical repair 07/07 -> omar patch + biopsy - IV abx, NG tube. UGI series today planned - Management per Dr Nielsen PUD: - PPI by IV - Advised against NSAIDs permanently MARIAM: - Resolved with fluids Tobacco use d/o: - Counseled to stop smoking Discharge when stable Problems: Subjective 24 Hr Interval Summary Free Text/Dictation Had long discussion about difficulties of homelessness, patient became quite tearful Abdominal pain controlled, still nauseous. Really doensn't like NG tube Exam/Review of Systems Vital Signs Vitals Vital Signs Date Time Temp Pulse Resp B/P Pulse Ox O2 Delivery O2 Flow Rate FiO2 07/09/17 15:19 98.1 71 20 113/67 91 07/07/17 20:00 Nasal Cannula 2.0 Intake and Output 07/08/17 07/08/17 07/09/17 15:00 23:00 07:00 Intake Total 100 ml 50 ml Output Total 125 ml 100 ml Balance 100 ml -75 ml -100 ml Exam Comfortable appearing, AOx3 Very pleasant Abdomen soft nt nd, very minimal TTP, no guarding or rebound Results Result Diagram: 07/07/17 0821 07/07/17 0821 Medications Medications Current Medications Pantoprazole 40 mg 40 mg BID@06,18 IV Last administered on 07/09/17 06:29; Admin Dose 40 MG; Start 07/07/17 at 06:00 Piperacillin Sod/ Tazobactam Sod 50 ml @ 100 mls/hr Q8 IVPB Last administered on 07/09/17 13:03; Admin Dose 100 MLS/HR; Start 07/06/17 at 23:00 Potassium Chloride/Dextrose/ Sod Cl 1,000 ml @ 100 mls/hr Q10H IV Last administered on 07/09/17 08:26; Admin Dose 100 MLS/HR; Start 07/06/17 at 20:08 Acetaminophen (Ofirmev 1000mg/ 100ml Iv) 100 ml @ 400 mls/hr Q6H IVPB Last administered on 07/09/17 14:19; Admin Dose 400 MLS/HR; Start 07/06/17 at 20:30 Hydromorphone HCl (Dilaudid) 0.5 mg Q4H PRN IV PAIN Last administered on 12:26; Admin Dose 0.5 MG; Start 07/06/17 at 23:30 Enoxaparin Sodium (Lovenox) 30 mg DAILY SC Last administered on 07/09/17 08:36 ; Admin Dose 30 MG; Start 07/08/17 at 09:00 Ondansetron HCl (Zofran Inj) 4 mg Q4 PRN IV NAUSEA AND/OR VOMITING Last administered on 07/09/17 02:50; Admin Dose 4 MG; Start 07/07/17 at 21:00 Nicotine (Nicoderm 14 Mg/ 24hr) 1 patch DAILY TRANSDERM Last administered on 08:27; Admin Dose 1 PATCH; Start 07/08/17 at 09:00 Zolpidem Tartrate (Ambien) 5 mg HS PRN PO INSOMNIA Last administered on 23:39; Admin Dose 5 MG; Start 07/08/17 at 23:30 МАРИНА GOULD MD Jul 09, 2017 15:26
--- NOTE | 2017-07-09 15:32 | PN ---
Date/Time of Note Date/Time of Note DATE: 07/09/17 TIME: 15:07 Assessment/Plan VTE Prophylaxis VTE Prophylaxis Intervention: SCD's Lines/Catheters IV Catheter Type (from [facility]): Peripheral IV Urinary Cath still in place: No Assessment/Plan Chief Complaint/Hosp Course Chief Complaint/Hosp Course Assessment: Perforated viscous secondary to PUD S/P laparoscopic colon resection 07/06/17 Plan: Upper GI series today Pain management as needed Antiemetic medication as needed Monitor H&H Diet per surgery Patient seen in collaboration with Dr. Almazan Subjective: Course reviewed with nursing staff Patient interviewed and examined All labs, imaging and other results reviewed The patient is in pain at the surgical site and the drain insertion site, continues with pain management. Abdominal drain FREDIS is in place with minimal serous fluid output, NGT in place. No significant events over night. At this point will sign off to surgical team and will be available for consult as needed. PHYSICAL EXAMINATION: GENERAL: Well developed, well nourished, alert & oriented x 3, in no acute distress SKIN: No lesions, no stigmata chronic liver disease, no evidence of bleeding diathesis, left upper quadrant abdominal drain is in place. LYMPHATIC: No palpable lymphadenopathy. HEAD: Normocephalic, atraumatic, no tenderness. EYES: Pupils equal reactive to light and accommodation, full extraocular movements, sclera clear, non-icteric, no discharge. EARS/NOSE AND THROAT: Ears normal, nose normal, oropharynx normal, oral membranes well hydrated without lesions. NECK: Supple, no masses, thyroid normal, JVP within normal limits, carotids normal without bruits. CHEST: Inspection within normal limits. CARDIOVASCULAR: Heart: Regular rate and rhythm, no murmurs, gallops or rubs. Peripheral pulses present within normal limits, no cyanosis, clubbing or edemas. No pulsatile abdominal mass RESPIRATORY: Lungs clear to auscultation and percussion, no wheezing, no rubs GASTROINTESTINAL AND LIVER: Abdomen: Soft, moderate generalized tenderness with emphasis on left upper quadrant, non-distended, no hernias, no masses, no organomegaly, no ascites, no guarding, no rebound tenderness, normoactive bowel sounds. Rectal: Deferred. GENITOURINARY: Female genitalia within normal limits.] EXTREMITIES: No cyanosis, clubbing or edema. Problems: Exam/Review of Systems Vital Signs Vitals Vital Signs Date Time Temp Pulse Resp B/P Pulse Ox O2 Delivery O2 Flow Rate FiO2 07/09/17 12:05 81 07/09/17 11:22 98.0 16 121/60 92 07/07/17 20:00 Nasal Cannula 2.0 Intake and Output 07/08/17 07/08/17 07/09/17 15:00 23:00 07:00 Intake Total 100 ml 50 ml Output Total 125 ml 100 ml Balance 100 ml -75 ml -100 ml Results Result Diagram: 07/07/1721 07/07/17 0821 Medications Medications Current Medications Pantoprazole 40 mg 40 mg BID@06,18 IV Last administered on 07/09/17 06:29; Admin Dose 40 MG; Start 07/07/17 at 06:00 Piperacillin Sod/ Tazobactam Sod 50 ml @ 100 mls/hr Q8 IVPB Last administered on 07/09/17 13:03; Admin Dose 100 MLS/HR; Start 07/06/17 at 23:00 Potassium Chloride/Dextrose/ Sod Cl 1,000 ml @ 100 mls/hr Q10H IV Last administered on 07/09/17 08:26; Admin Dose 100 MLS/HR; Start 07/06/17 at 20:08 Acetaminophen (Ofirmev 1000mg/ 100ml Iv) 100 ml @ 400 mls/hr Q6H IVPB Last administered on 07/09/17 14:19; Admin Dose 400 MLS/HR; Start 07/06/17 at 20:30 Hydromorphone HCl (Dilaudid) 0.5 mg Q4H PRN IV PAIN Last administered on 12:26; Admin Dose 0.5 MG; Start 07/06/17 at 23:30 Enoxaparin Sodium (Lovenox) 30 mg DAILY SC Last administered on 07/09/17 08:36 ; Admin Dose 30 MG; Start 07/08/17 at 09:00 Ondansetron HCl (Zofran Inj) 4 mg Q4 PRN IV NAUSEA AND/OR VOMITING Last administered on 07/09/17 02:50; Admin Dose 4 MG; Start 07/07/17 at 21:00 Nicotine (Nicoderm 14 Mg/ 24hr) 1 patch DAILY TRANSDERM Last administered on 08:27; Admin Dose 1 PATCH; Start 07/08/17 at 09:00 Zolpidem Tartrate (Ambien) 5 mg HS PRN PO INSOMNIA Last administered on 23:39; Admin Dose 5 MG; Start 07/08/17 at 23:30 NELIA MARTINS NP Jul 09, 2017 15:32
[2017-07-09] MEDS ORDERED: DIATR MEGLU/DIATRIZOATE SODIUM 120 ML BTL ONE (16:18)
--- NOTE | 2017-07-09 16:48 | PN ---
Date/Time of Note Date/Time of Note DATE: 07/09/17 TIME: 16:41 Assessment/Plan Lines/Catheters IV Catheter Type (from [facility]): Peripheral IV Anderson in Place (from [facility]): No Assessment/Plan Chief Complaint/Hosp Course 1. Perforated prepyloric gastric anterior ulcer s/p laparoscopic repair of perforated gastric ulcer with Martín patch & gastric ulcer with resection biopsy -ivf -iv abx -ppi -keep patient npo, including ice chips until ugi done -follow path -is -is pack -ambulate -ngt to lis; clamp when ambulating -ugi pending 2. PUD, extensive hx; follow path -rule out h. pylori -ppi -stop smoking -stop ASA -regular antacids use 3. Anemia: -monitor -transfuse as needed 4. Hypoalbuminemia with hypocalcemia: multifactorial -optimize nutrition -as above 5. Noncompliance -Highly encouraged to comply with her treatments to avoid further injury 6. Mild leukocytosis: 09/09 #1 normalized Thank you. Patient seen and examined in collaboration with Dr. Wallace Nielsen. Problems: Subjective 24 Hr Interval Summary Pending ugi series. Large output per ngtube and bigg drain. Reportedly eating ice- chips- patient is supposed to be npo. No fevers, chills, sob, congested cough, cp, palpitations, akhtar, dizziness, n/v/d/dysuria. Exam/Review of Systems Vital Signs Vitals Vital Signs Date Time Temp Pulse Resp B/P Pulse Ox O2 Delivery O2 Flow Rate FiO2 07/09/17 15:19 98.1 71 20 113/67 91 07/07/17 20:00 Nasal Cannula 2.0 Intake and Output 07/08/17 07/08/17 07/09/17 15:00 23:00 07:00 Intake Total 100 ml 50 ml Output Total 125 ml 100 ml Balance 100 ml -75 ml -100 ml Exam Free Text/Dictation Constitutional: alert, oriented, No distress Psych: anxiety, No confusion Head: atraumatic, normocephalic Eyes: EOMI, PERRL, nl conjunctiva, No icteric ENMT: nl external ears & nose, nl lips & teeth, ngt No mucosa pink and moist Neck: non-tender, supple, No jvd Respiratory: normal air movement, No congested cough, No diminished breath sounds, No labored breathing Cardiovascular: regular rate and rhythm, No edema Gastrointestinal: non distended, no rebound or guarding, Bigg drain- serosanguineous, incision sites dry without drainage/bruising/discoloration, improved tenderness Musculoskeletal: nl extremities to inspection, nl gait and stance, No joint tenderness Extremities: No calf tenderness, No cyanosis Neurological: nl mental status, nl speech, nl strength Skin: nl turgor, No diaphoresis, No rash or lesions Lymph: nl lymph nodes Results Result Diagram: 07/07/1782007/07/17820 JACKLYN TORO NP Jul 09, 2017 16:48
--- NOTE | 2017-07-09 18:15 | RADRPT ---
PROCEDURE: Upper GI series CLINICAL INDICATION: Perforated gastric ulcer. COMPARISON: Correlation with CT from 07/06/2017. FINDINGS: Contrast opacifies the stomach without evidence of extraluminal leak into the surrounding peritoneum . There is suggestion of a 1.8 cm ulcer along the greater curvature of the distal gastric body/antru m. The stomach is otherwise normal in size and morphology. There is no evidence for hiatal hernia. There is no gastroesophageal reflux noted during the examination. The duodenal bulb and C-loop of the duodenum are unremarkable. Contrast passes normally through the upper GI tract. Aperitoneal tammie in overlies the abdomen with the tip in the left upper quadrant. The bowel gas pattern is unremarkab le. IMPRESSION: 1. No evidence of extraluminal contrast extravasation to suggest patent gastric perforation. 2. Suspected gastric ulcer along the greater curvature of the gastric body/antrum without evidence of associated peritoneal leakage. RPTAT: QQ .Carlos Orozco MD, Date Time Electronically viewed and signed by .Carlos Orozco MD, on 07/09/2017 18:15 .A/
[2017-07-10] VITALS (13 sets, daily range): BP systolic 119–139; BP diastolic 58–74; PULSE 59–72; RESP 18–20
[2017-07-10] MEDS: ONDANSETRON 4 MG INJ IV PRN ×3 (00:09→21:27)
[2017-07-10] MEDS: HYDROmorphONE 0.5 MG/0.5 ML SYG IV PRN ×4 (00:10→21:30)
[2017-07-10] MEDS: D5W-0.45 NACL + KCL 20 MEQ 1,000 ML IV SCH (04:08)
[2017-07-10] MEDS ORDERED: LOPERAMIDE 2 MG CAP PO ONE (04:30)
[2017-07-10] MEDS: ACETAMINOPHEN 1000MG/100ML IV 100 ML IVPB SCH ×4 (04:52→19:53)
[2017-07-10 06:14] LABS: BASOPHILS % 0.5 % (0.0-2.0); EOSINOPHILS # 0.3 10^3/ul (0.0-0.5); EOSINOPHILS % 4.3 % (0.0-7.0); HEMATOCRIT 31.2 % (37.0-47.0); HEMOGLOBIN 10.2 g/dl (12.0-16.0); LYMPHOCYTES # 1.2 10^3/ul (0.8-2.9); LYMPHOCYTES % 16.6 % (15.0-51.0); MEAN CORPUSCULAR HEMOGLOBIN 31.9 pg (29.0-33.0); MEAN CORPUSCULAR HGB CONC 32.7 g/dl (32.0-37.0); MEAN CORPUSCULAR VOLUME 97.5 fl (82.0-101.0); MEAN PLATELET VOLUME 8.9 fl (7.4-10.4); MONOCYTE # 0.7 10^3/ul (0.3-0.9); MONOCYTES % 10.2 % (0.0-11.0); PLATELET COUNT 351 10^3/UL (140-415); WHITE BLOOD COUNT 7.3 10^3/ul (4.8-10.8)
[2017-07-10] MEDS: PANTOPRAZOLE 40 MG INJ IV SCH ×2 (06:25→17:43)
[2017-07-10] MEDS: PIPER-TAZO 3.375 GM IV (PMX) 50 ML IVPB SCH ×3 (06:25→21:28)
[2017-07-10 07:01] LABS: ALBUMIN 3.3 g/dl (3.3-4.9); ALBUMIN/GLOBULIN RATIO 1.06; BILIRUBIN,INDIRECT 0.1 mg/dl (0-1.1); BILIRUBIN,TOTAL 0.1 mg/dl (0.2-1.3); CALCIUM 8.8 mg/dl (8.4-10.2); CREATININE 0.65 mg/dl (0.44-1.00); POTASSIUM 4.1 mmol/L (3.5-5.1); TOTAL PROTEIN 6.4 g/dl (6.1-8.1)
[2017-07-10] MEDS: NICOTINE (14 MG/24 HR) PATCH TRANSDERM SCH (09:23)
[2017-07-10] MEDS: ENOXAPARIN 30 MG/0.3 ML SYG SC SCH (09:32)
--- NOTE | 2017-07-10 09:38 | RADRPT ---
PROCEDURE: XR Abdomen. CLINICAL INDICATION: Abdominal pain TECHNIQUE: Frontal supine and upright AP views of the abdomen was obtained. COMPARISON: Upper GI series yesterday FINDINGS: Enteric feeding tube terminates over the stomach. Nonobstructive bowel gas pattern. No evidence for free air. No contrast extravasation to suggest leak. Blunting of the left cardiophrenic angle. No ac [place] osseous abnormality. IMPRESSION: No evidence for bowel perforation or leak. Possible small left pleural effusion. RPTAT: AA Physician Nick Date Time Electronically viewed and signed by Luda De Jesus Physician on 07/10/2017 09:38 [place]/
--- NOTE | 2017-07-10 14:14 | PN ---
Date/Time of Note Date/Time of Note DATE: 07/10/17 TIME: 14:10 Assessment/Plan Lines/Catheters IV Catheter Type (from [facility]): Peripheral IV Anderson in Place (from [facility]): No Assessment/Plan Chief Complaint/Hosp Course 1. Perforated prepyloric gastric anterior ulcer s/p laparoscopic repair of perforated gastric ulcer with Martín patch & gastric ulcer with resection biopsy -iv abx -ppi -clears -follow path -is -ice pack -ambulate -bigg drain care 2. PUD, extensive hx; -ppi -stop smoking -stop ASA -regular antacids use 3. Anemia: -monitor -transfuse as needed 4. Hypoalbuminemia with hypocalcemia: multifactorial -optimize nutrition -as above 5. Noncompliance -Highly encouraged to comply with her treatments to avoid further injury 6. Fatty liver -medical management -encourage weight loss and diet/exercise optimization Thank you. Patient seen and examined in collaboration with Dr. Wallace Nielsen. Problems: Subjective 24 Hr Interval Summary UGI noted. Feels well. Continues to have output from bigg. No fevers, chills, sob , congested cough, cp, palpitations, akhtar, dizziness, n/v/d/dysuria. Exam/Review of Systems Vital Signs Vitals Vital Signs Date Time Temp Pulse Resp B/P Pulse Ox O2 Delivery O2 Flow Rate FiO2 07/10/17 12:36 98.0 18 125/63 99 07/10/17 12:34 72 07/07/17 20:00 Nasal Cannula 2.0 Intake and Output 07/09/17 07/09/17 07/10/17 15:00 23:00 07:00 Intake Total 0 ml Output Total 100 ml Balance -100 ml Exam Free Text/Dictation Constitutional: alert, oriented, No distress Psych: anxiety, No confusion Head: atraumatic, normocephalic Eyes: EOMI, PERRL, nl conjunctiva, No icteric ENMT: nl external ears & nose, nl lips & teeth No mucosa pink and moist Neck: non-tender, supple, No jvd Respiratory: normal air movement, No congested cough, No diminished breath sounds, No labored breathing Cardiovascular: regular rate and rhythm, No edema Gastrointestinal: non distended, no rebound or guarding, Bigg drain- serosanguineous, incision sites dry without drainage/bruising/discoloration, improved tenderness Musculoskeletal: nl extremities to inspection, nl gait and stance, No joint tenderness Extremities: No calf tenderness, No cyanosis Neurological: nl mental status, nl speech, nl strength Skin: nl turgor, No diaphoresis, No rash or lesions Lymph: nl lymph nodes Results Result Diagram: 07/10/17 0526 07/10/17 0526 JACKLYN TORO NP Jul 10, 2017 14:14
--- NOTE | 2017-07-10 14:16 | PN ---
Date/Time of Note Date/Time of Note DATE: 07/10/17 TIME: 14:01 Assessment/Plan VTE Prophylaxis VTE Prophylaxis Intervention: ambulation Lines/Catheters IV Catheter Type (from [facility]rs[facility]): Peripheral IV Urinary Cath still in place: No Assessment/Plan Chief Complaint/Hosp Course Chief Complaint/Hosp Course Assessment: Perforated viscous secondary to PUD S/P laparoscopic colon resection 07/06/17 Plan: Upper GI series negative for perforation NG tube has been dc'd Pain management as needed Antiemetic medication as needed Monitor H&H, stable Clear liquid diet per surgery Patient seen in collaboration with Dr. Almazan Subjective: Course reviewed with nursing staff Patient interviewed and examined All labs, imaging and other results reviewed The patient is in pain at the surgical site and the drain insertion site, continues with pain management. Requires pain medications every 6 hours, describes pain level as 5 out of 10. Abdominal drain FREDIS is in place with minimal serous fluid output, NGT has been DC'd during her GI series. Patient is feeling relieved from discomfort over NG tube. Started on clear liquid diet per surgical team. At this point will sign off to surgical team and will be available for consult as needed. PHYSICAL EXAMINATION: GENERAL: Well developed, well nourished, alert & oriented x 3, in no acute distress SKIN: No lesions, no stigmata chronic liver disease, no evidence of bleeding diathesis, left upper quadrant abdominal drain is in place. LYMPHATIC: No palpable lymphadenopathy. HEAD: Normocephalic, atraumatic, no tenderness. EYES: Pupils equal reactive to light and accommodation, full extraocular movements, sclera clear, non-icteric, no discharge. EARS/NOSE AND THROAT: Ears normal, nose normal, oropharynx normal, oral membranes well hydrated without lesions. NECK: Supple, no masses, thyroid normal, JVP within normal limits, carotids normal without bruits. CHEST: Inspection within normal limits. CARDIOVASCULAR: Heart: Regular rate and rhythm, no murmurs, gallops or rubs. Peripheral pulses present within normal limits, no cyanosis, clubbing or edemas. No pulsatile abdominal mass RESPIRATORY: Lungs clear to auscultation and percussion, no wheezing, no rubs GASTROINTESTINAL AND LIVER: Abdomen: Drain in place . soft, moderate generalized tenderness with emphasis on left upper quadrant, non-distended, no hernias, no masses, no organomegaly, no ascites, no guarding, no rebound tenderness, normoactive bowel sounds. Rectal: Deferred. GENITOURINARY: Female genitalia within normal limits.] EXTREMITIES: No cyanosis, clubbing or edema. Problems: Exam/Review of Systems Vital Signs Vitals Vital Signs Date Time Temp Pulse Resp B/P Pulse Ox O2 Delivery O2 Flow Rate FiO2 07/10/17 12:36 98.0 18 125/63 99 07/10/17 12:34 72 07/07/17 20:00 Nasal Cannula 2.0 Intake and Output 07/09/17 07/09/17 07/10/17 15:00 23:00 07:00 Intake Total 0 ml Output Total 100 ml Balance -100 ml Results Result Diagram: 07/10/1752507/10/17 0526 Results 24 hrs Laboratory Tests Test 07/10/17 05:26 White Blood Count 7.3 # Red Blood Count 3.20 L Hemoglobin 10.2 L Hematocrit 31.2 L Mean Corpuscular Volume 97.5 Mean Corpuscular Hemoglobin 31.9 Mean Corpuscular Hemoglobin Concent 32.7 Red Cell Distribution Width 13.0 Platelet Count 351 Mean Platelet Volume 8.9 Neutrophils % 68.0 Lymphocytes % 16.6 Monocytes % 10.2 Eosinophils % 4.3 Basophils % 0.5 Nucleated Red Blood Cells % 0.0 Neutrophils # 5.0 Lymphocytes # 1.2 Monocytes # 0.7 Eosinophils # 0.3 Basophils # 0.0 Nucleated Red Blood Cells # 0.0 Sodium Level 141 Potassium Level 4.1 Chloride Level 106 Carbon Dioxide Level 28 Anion Gap 11 Blood Urea Nitrogen 5 L Creatinine 0.65 Glucose Level 96 Calcium Level 8.8 Total Bilirubin 0.1 L Direct Bilirubin 0.00 Indirect Bilirubin 0.1 Aspartate Amino Transf (AST/SGOT) 23 Alanine Aminotransferase (ALT/SGPT) 31 Alkaline Phosphatase 113 Total Protein 6.4 Albumin 3.3 Globulin 3.10 Albumin/Globulin Ratio 1.06 Medications Medications Current Medications Pantoprazole 40 mg 40 mg BID@06,18 IV Last administered on 07/10/17 06:25; Admin Dose 40 MG; Start 07/07/17 at 06:00 Piperacillin Sod/ Tazobactam Sod 50 ml @ 100 mls/hr Q8 IVPB Last administered on 07/10/17 13:15; Admin Dose 100 MLS/HR; Start 07/06/17 at 23:00 Acetaminophen (Ofirmev 1000mg/ 100ml Iv) 100 ml @ 400 mls/hr Q6H IVPB Last administered on 07/10/17 09:24; Admin Dose 400 MLS/HR; Start 07/06/17 at 20:30 Hydromorphone HCl (Dilaudid) 0.5 mg Q4H PRN IV PAIN Last administered on 13:14; Admin Dose 0.5 MG; Start 07/06/17 at 23:30 Enoxaparin Sodium (Lovenox) 30 mg DAILY SC Last administered on 07/10/17 09:32 ; Admin Dose 30 MG; Start 07/08/17 at 09:00 Ondansetron HCl (Zofran Inj) 4 mg Q4 PRN IV NAUSEA AND/OR VOMITING Last administered on 07/10/17 13:13; Admin Dose 4 MG; Start 07/07/17 at 21:00 Nicotine (Nicoderm 14 Mg/ 24hr) 1 patch DAILY TRANSDERM Last administered on 09:23; Admin Dose 1 PATCH; Start 07/08/17 at 09:00 Zolpidem Tartrate (Ambien) 5 mg HS PRN PO INSOMNIA Last administered on 23:39; Admin Dose 5 MG; Start 07/08/17 at 23:30 Copies To: CC: ANGELLA ALMAZAN MD, ANASTASIA NP Jul 10, 2017 14:16
--- NOTE | 2017-07-10 14:39 | PN ---
Date/Time of Note Date/Time of Note DATE: 07/10/17 TIME: 14:37 Assessment/Plan VTE Prophylaxis VTE Prophylaxis Intervention: LMWH Lines/Catheters IV [facility]ter Type (from [facility]): Peripheral IV Urinary Cath still in place: No Assessment/Plan Chief Complaint/Hosp Course 62 yo female with recently diagonsed very large peptic ulcer who now presents with pneumoperitoneum likely from perforated ulcer Pneumoperitoneum from perforated ulcer: - s/p surgical repair 07/07 -> omar patch + biopsy. Upper GI series 07/09 shows no leak - Continue IV zosyn to complete 7 day course - Dc NG tube, advance to clears today PUD: - PPI by IV - Advised against NSAIDs permanently MARIAM: - Resolved with fluids Tobacco use d/o: - Counseled to stop smoking Discharge in coming days per Dr Nielsen Problems: Subjective 24 Hr Interval Summary Free Text/Dictation Very relieved to hear UGI series normal, and NG can be removed No abdominal pain Exam/Review of Systems Vital Signs Vitals Vital Signs Date Time Temp Pulse Resp B/P Pulse Ox O2 Delivery O2 Flow Rate FiO2 07/10/17 12:36 98.0 18 125/63 99 07/10/17 12:34 72 07/07/17 20:00 Nasal Cannula 2.0 Intake and Output 07/09/17 07/09/17 07/10/17 15:00 23:00 07:00 Intake Total 0 ml Output Total 100 ml Balance -100 ml Exam Well appearing, NAD Abdomen soft nt nd, FREDIS drain. Incision c/d/i Constitutional: alert, oriented, well developed Psych: nl mood/affect, no complaints Head: atraumatic, normocephalic Eyes: EOMI, PERRL, nl conjunctiva, nl lids, nl sclera ENMT: nl external ears & nose, nl lips & teeth, nl nasal mucosa & septum Neck: non-tender, supple Respiratory: clear to auscultation, normal air movement Cardiovascular: nl pulses, regular rate and rhythm Gastrointestinal: nl liver, spleen, non-tender, soft Musculoskeletal: nl extremities to inspection, nl gait and stance Extremities: normal pulses Neurological: COP II-XII intact, nl mental status, nl speech, nl strength Skin: nl turgor, No rash or lesions Lymph: nl lymph nodes Results Result Diagram: 07/10/1752507/10/17 0526 Results 24 hrs Laboratory Tests Test 07/10/17 05:26 White Blood Count 7.3 # Red Blood Count 3.20 L Hemoglobin 10.2 L Hematocrit 31.2 L Mean Corpuscular Volume 97.5 Mean Corpuscular Hemoglobin 31.9 Mean Corpuscular Hemoglobin Concent 32.7 Red Cell Distribution Width 13.0 Platelet Count 351 Mean Platelet Volume 8.9 Neutrophils % 68.0 Lymphocytes % 16.6 Monocytes % 10.2 Eosinophils % 4.3 Basophils % 0.5 Nucleated Red Blood Cells % 0.0 Neutrophils # 5.0 Lymphocytes # 1.2 Monocytes # 0.7 Eosinophils # 0.3 Basophils # 0.0 Nucleated Red Blood Cells # 0.0 Sodium Level 141 Potassium Level 4.1 Chloride Level 106 Carbon Dioxide Level 28 Anion Gap 11 Blood Urea Nitrogen 5 L Creatinine 0.65 Glucose Level 96 Calcium Level 8.8 Total Bilirubin 0.1 L Direct Bilirubin 0.00 Indirect Bilirubin 0.1 Aspartate Amino Transf (AST/SGOT) 23 Alanine Aminotransferase (ALT/SGPT) 31 Alkaline Phosphatase 113 Total Protein 6.4 Albumin 3.3 Globulin 3.10 Albumin/Globulin Ratio 1.06 Medications Medications Current Medications Pantoprazole 40 mg 40 mg BID@06,18 IV Last administered on 07/10/17 06:25; Admin Dose 40 MG; Start 07/07/17 at 06:00 Piperacillin Sod/ Tazobactam Sod 50 ml @ 100 mls/hr Q8 IVPB Last administered on 07/10/17 13:15; Admin Dose 100 MLS/HR; Start 07/06/17 at 23:00 Acetaminophen (Ofirmev 1000mg/ 100ml Iv) 100 ml @ 400 mls/hr Q6H IVPB Last administered on 07/10/17 14:29; Admin Dose 400 MLS/HR; Start 07/06/17 at 20:30 Hydromorphone HCl (Dilaudid) 0.5 mg Q4H PRN IV PAIN Last administered on 13:14; Admin Dose 0.5 MG; Start 07/06/17 at 23:30 Enoxaparin Sodium (Lovenox) 30 mg DAILY SC Last administered on 07/10/17 09:32 ; Admin Dose 30 MG; Start 07/08/17 at 09:00 Ondansetron HCl (Zofran Inj) 4 mg Q4 PRN IV NAUSEA AND/OR VOMITING Last administered on 07/10/17 13:13; Admin Dose 4 MG; Start 07/07/17 at 21:00 Nicotine (Nicoderm 14 Mg/ 24hr) 1 patch DAILY TRANSDERM Last administered on 09:23; Admin Dose 1 PATCH; Start 07/08/17 at 09:00 Zolpidem Tartrate (Ambien) 5 mg HS PRN PO INSOMNIA Last administered on 23:39; Admin Dose 5 MG; Start 07/08/17 at 23:30 МАРИНА GOULD MD Jul 10, 2017 14:39
[2017-07-11] VITALS (11 sets, daily range): BP systolic 124–135; BP diastolic 48–60; PULSE 55–71; RESP 18–20
[2017-07-11] MEDS: ACETAMINOPHEN 1000MG/100ML IV 100 ML IVPB SCH ×4 (02:15→20:30)
[2017-07-11] MEDS: PIPER-TAZO 3.375 GM IV (PMX) 50 ML IVPB SCH ×3 (06:52→22:15)
[2017-07-11] MEDS: PANTOPRAZOLE (EC) 40 MG TAB PO SCH ×2 (06:52→17:22)
[2017-07-11] MEDS: NICOTINE (14 MG/24 HR) PATCH TRANSDERM SCH (08:14)
[2017-07-11] MEDS: ENOXAPARIN 30 MG/0.3 ML SYG SC SCH (08:19)
--- NOTE | 2017-07-11 11:23 | PN ---
Date/Time of Note Date/Time of Note DATE: 07/11/17 TIME: 11:12 Assessment/Plan Lines/Catheters IV Catheter Type (from [facility]): Saline Lock [place] in Place (from [facility]): No Assessment/Plan Chief Complaint/Hosp Course 1. Perforated prepyloric gastric anterior ulcer s/p laparoscopic repair of perforated gastric ulcer with Martín patch & gastric ulcer with resection biopsy -ppi -advance diet as [place] -follow path -is -ice pack -ambulate -bigg drain care 2. PUD, extensive hx; -ppi -stop smoking -stop ASA -regular antacids use 3. Anemia: -monitor -transfuse as needed 4. Hypoalbuminemia with hypocalcemia: multifactorial -optimize nutrition -as above 5. Noncompliance -Highly encouraged to comply with her treatments to avoid further injury 6. Fatty liver -medical management -encourage weight loss and diet/exercise optimization Thank you. Patient seen and examined in collaboration with Dr. Wallace Nielsen. Problems: Subjective 24 Hr Interval Summary Feels well. Less than 50 ml output from BIGG per nursing. Min abdominal tenderness. No fevers, chills, sob, congested cough, cp, palpitations, akhtar, dizziness, n/v/d/dysuria. Exam/Review of Systems Vital Signs Vitals Vital Signs Date Time Temp Pulse Resp B/P Pulse Ox O2 Delivery O2 Flow Rate FiO2 07/11/17 08:36 62 07/11/17 07:36 97.9 19 135/52 94 07/07/17 20:00 Nasal Cannula 2.0 Intake and Output 07/10/17 07/10/17 07/11/17 15:00 23:00 07:00 Intake Total 600 ml 800 ml Balance 600 ml 800 ml Exam Free Text/Dictation Constitutional: alert, oriented, No distress Psych: anxiety, No confusion Head: atraumatic, normocephalic Eyes: EOMI, PERRL, nl conjunctiva, No icteric ENMT: nl external ears & nose, nl lips & teeth No mucosa pink and moist Neck: non-tender, supple, No jvd Respiratory: normal air movement, No congested cough, No diminished breath sounds, No labored breathing Cardiovascular: regular rate and rhythm, No edema Gastrointestinal: non distended, no rebound or guarding, Bigg drain-serous output , incision sites dry without drainage/bruising/discoloration, improved tenderness Musculoskeletal: nl extremities to inspection, nl gait and stance, No joint tenderness Extremities: No calf tenderness, No cyanosis Neurological: nl mental status, nl speech, nl strength Skin: nl turgor, No diaphoresis, No rash or lesions Lymph: nl lymph nodes Results Result Diagram: 07/10/17 0526 07/10/17 0526 JACKLYN TORO NP Jul 11, 2017 11:23 JACKLYN TORO NP Jul 11, 2017 11:23
[2017-07-11] MEDS: HYDROmorphONE 0.5 MG/0.5 ML SYG IV PRN (13:09)
[2017-07-11] MEDS: ONDANSETRON 4 MG INJ IV PRN (13:09)
--- NOTE | 2017-07-11 19:36 | PN ---
Date/Time of Note Date/Time of Note DATE: 07/11/17 TIME: 19:35 Assessment/Plan VTE Prophylaxis VTE Prophylaxis Intervention: LMWH Lines/Catheters IV [facility] Type (from [facility]): Saline Lock Urinary Cath still in place: No Assessment/Plan Chief Complaint/Hosp Course Pneumoperitoneum from perforated ulcer: - s/p surgical repair 07/07 -> omar patch + biopsy. Upper GI series 07/09 shows no leak - Continue IV zosyn to complete 7 day course -Diet advance to regular PUD: - PPI by IV - Advised against NSAIDs permanently MARIAM: - Resolved with fluids Tobacco use d/o: - Counseled to stop smoking Discharge in coming days per Dr Nielsen Prophylaxis: Lovenox Problems: Subjective 24 Hr Interval Summary Constitutional: no complaints Exam/Review of Systems Vital Signs Vitals Vital Signs Date Time Temp Pulse Resp B/P Pulse Ox O2 Delivery O2 Flow Rate FiO2 07/11/17 16:51 71 07/11/17 15:32 98.1 19 124/48 95 07/07/17 20:00 Nasal Cannula 2.0 Intake and Output 07/10/17 07/10/17 07/11/17 14:59 22:59 06:59 Intake Total 600 ml 800 ml Balance 600 ml 800 ml Exam Constitutional: alert, oriented Respiratory: clear to auscultation Cardiovascular: regular rate and rhythm Gastrointestinal: soft, No distended Musculoskeletal: nl extremities to inspection Results Result Diagram: 07/10/1752507/10/17525 Medications Medications Current Medications Piperacillin Sod/ Tazobactam Sod 50 ml @ 100 mls/hr Q8 IVPB Last administered on 07/11/17 13:09; Admin Dose 100 MLS/HR; Start 07/06/17 at 23:00 Acetaminophen (Ofirmev 1000mg/ 100ml Iv) 100 ml @ 400 mls/hr Q6H IVPB Last administered on 07/11/17 15:14; Admin Dose 400 MLS/HR; Start 07/06/17 at 20:30 Hydromorphone HCl (Dilaudid) 0.5 mg Q4H PRN IV PAIN Last administered on 13:09; Admin Dose 0.5 MG; Start 07/06/17 at 23:30 Enoxaparin Sodium (Lovenox) 30 mg DAILY SC Last administered on 07/11/17 08:19 ; Admin Dose 30 MG; Start 07/08/17 at 09:00 Ondansetron HCl (Zofran Inj) 4 mg Q4 PRN IV NAUSEA AND/OR VOMITING Last administered on 07/11/17 13:09; Admin Dose 4 MG; Start 07/07/17 at 21:00 Nicotine (Nicoderm 14 Mg/ 24hr) 1 patch DAILY TRANSDERM Last administered on 08:14; Admin Dose 1 PATCH; Start 07/08/17 at 09:00 Zolpidem Tartrate (Ambien) 5 mg HS PRN PO INSOMNIA Last administered on 23:39; Admin Dose 5 MG; Start 07/08/17 at 23:30 Pantoprazole (Protonix Tab) 40 mg BID@06,18 PO Last administered on 07/11/17 17:22; Admin Dose 40 MG; Start 07/11/17 at 06:00 JONNY MORGAN Jul 11, 2017 19:36
[2017-07-11] MEDS: ZOLPIDEM 5 MG TAB PO PRN (22:15)
[2017-07-12 00:18] VITALS: BP 122/71; RESP 20
[2017-07-12 02:32] VITALS: BP 126/60; RESP 20
[2017-07-12] MEDS: ACETAMINOPHEN 1000MG/100ML IV 100 ML IVPB SCH ×4 (02:37→20:30)
[2017-07-12 05:17] LABS: BASOPHIL # 0.1 10^3/ul (0.0-0.1); BASOPHILS % 0.6 % (0.0-2.0); EOSINOPHILS # 0.3 10^3/ul (0.0-0.5); EOSINOPHILS % 3.5 % (0.0-7.0); HEMATOCRIT 31.3 % (37.0-47.0); HEMOGLOBIN 10.7 g/dl (12.0-16.0); LYMPHOCYTES # 1.1 10^3/ul (0.8-2.9); LYMPHOCYTES % 12.5 % (15.0-51.0); MEAN CORPUSCULAR HEMOGLOBIN 31.8 pg (29.0-33.0); MEAN CORPUSCULAR HGB CONC 34.2 g/dl (32.0-37.0); MEAN CORPUSCULAR VOLUME 93.2 fl (82.0-101.0); MEAN PLATELET VOLUME 8.7 fl (7.4-10.4); MONOCYTE # 0.9 10^3/ul (0.3-0.9); MONOCYTES % 10.3 % (0.0-11.0); NEUTROPHIL # 6.2 10^3/ul (1.6-7.5); NEUTROPHILS % 72.7 % (39.0-77.0); PLATELET COUNT 368 10^3/UL (140-415); RED BLOOD COUNT 3.36 10^6/ul (4.20-5.40); RED CELL DISTRIBUTION WIDTH 12.6 % (11.5-14.5); WHITE BLOOD COUNT 8.6 10^3/ul (4.8-10.8)
[2017-07-12] MEDS: PIPER-TAZO 3.375 GM IV (PMX) 50 ML IVPB SCH ×3 (05:18→21:14)
[2017-07-12] MEDS: PANTOPRAZOLE (EC) 40 MG TAB PO SCH ×2 (05:23→18:27)
[2017-07-12 05:53] LABS: CALCIUM 9.1 mg/dl (8.4-10.2); CREATININE 0.66 mg/dl (0.44-1.00); MAGNESIUM 1.6 mg/dl (1.7-2.5); PHOSPHORUS 3.2 mg/dl (2.5-4.9); POTASSIUM 3.4 mmol/L (3.5-5.1)
[2017-07-12 07:24] VITALS: BP 166/69; RESP 20
[2017-07-12] MEDS: NICOTINE (14 MG/24 HR) PATCH TRANSDERM SCH (08:32)
[2017-07-12] MEDS: ENOXAPARIN 30 MG/0.3 ML SYG SC SCH (08:37)
[2017-07-12] MEDS: ONDANSETRON 4 MG INJ IV PRN (08:37)
[2017-07-12] MEDS ORDERED: POTASSIUM CHLORIDE (SR) 20 MEQ TAB PO STA (09:38)
[2017-07-12] MEDS ORDERED: MAGNESIUM OXIDE 400 MG TAB PO ONE (10:00)
--- NOTE | 2017-07-12 12:28 | PN ---
Date/Time of Note Date/Time of Note DATE: 07/12/17 TIME: 12:23 Assessment/Plan VTE Prophylaxis VTE Prophylaxis Intervention: LMWH Lines/Catheters IV Catheter Type (from [facility]): Saline Lock Urinary Cath still in place: No Assessment/Plan Chief Complaint/Hosp Course 1. Pneumoperitoneum from perforated ulcer: - s/p surgical repair 07/07 -> omar patch + biopsy. Upper GI series 07/09 shows no leak - Continue IV zosyn to complete 7 day course -Diet advanced to regular -FREDIS drain still in place with significant output, not ready to be removed at this point and patient states that she cannot [facility] back to the jail with the drain in place -Possible removal of drain tomorrow, will follow-up with surgery recommendations 2. PUD: - PPI - Advised against NSAIDs permanently 3. MARIAM: - Resolved with fluids 4. Tobacco use d/o: - Counseled to stop smoking 5. Homelessness Will be discharged to a jail Discharge in coming days per Dr Nielsen Prophylaxis: Lovenox Problems: Subjective 24 Hr Interval Summary Constitutional: no complaints Exam/Review of Systems Vital Signs Vitals Vital Signs Date Time Temp Pulse Resp B/P Pulse Ox O2 Delivery O2 Flow Rate FiO2 07/12/17 07:24 98.1 62 20 166/69 96 Intake and Output 07/11/17 07/11/17 07/12/17 15:00 23:00 07:00 Intake Total 50 ml 1600 ml 440 ml Output Total 20 ml Balance 50 ml 1580 ml 440 ml Exam Constitutional: alert, oriented Respiratory: clear to auscultation Cardiovascular: regular rate and rhythm Gastrointestinal: soft, No distended Musculoskeletal: nl extremities to inspection Results Result Diagram: 07/12/17 0430 07/12/17 0430 Results 24 hrs Laboratory Tests Test 07/12/17 04:30 White Blood Count 8.6 Red Blood Count 3.36 L Hemoglobin 10.7 L Hematocrit 31.3 L Mean Corpuscular Volume 93.2 Mean Corpuscular Hemoglobin 31.8 Mean Corpuscular Hemoglobin Concent 34.2 Red Cell Distribution Width 12.6 Platelet Count 368 Mean Platelet Volume 8.7 Neutrophils % 72.7 Lymphocytes % 12.5 L Monocytes % 10.3 Eosinophils % 3.5 Basophils % 0.6 Nucleated Red Blood Cells % 0.0 Neutrophils # 6.2 Lymphocytes # 1.1 Monocytes # 0.9 Eosinophils # 0.3 Basophils # 0.1 Nucleated Red Blood Cells # 0.0 Sodium Level 139 Potassium Level 3.4 L Chloride Level 103 Carbon Dioxide Level 29 Anion Gap 10 Blood Urea Nitrogen 8 Creatinine 0.66 Glucose Level 91 Calcium Level 9.1 Phosphorus Level 3.2 Magnesium Level 1.6 L Medications Medications Current Medications Piperacillin Sod/ Tazobactam Sod 50 ml @ 100 mls/hr Q8 IVPB Last administered on 07/12/17 05:18; Admin Dose 100 MLS/HR; Start 07/06/17 at 23:00 Acetaminophen (Ofirmev 1000mg/ 100ml Iv) 100 ml @ 400 mls/hr Q6H IVPB Last administered on 07/12/17 08:31; Admin Dose 400 MLS/HR; Start 07/06/17 at 20:30 Hydromorphone HCl (Dilaudid) 0.5 mg Q4H PRN IV PAIN Last administered on 13:09; Admin Dose 0.5 MG; Start 07/06/17 at 23:30 Enoxaparin Sodium (Lovenox) 30 mg DAILY SC Last administered on 07/12/17 08:37 ; Admin Dose 30 MG; Start 07/08/17 at 09:00 Ondansetron HCl (Zofran Inj) 4 mg Q4 PRN IV NAUSEA AND/OR VOMITING Last administered on 07/12/17 08:37; Admin Dose 4 MG; Start 07/07/17 at 21:00 Nicotine (Nicoderm 14 Mg/ 24hr) 1 patch DAILY TRANSDERM Last administered on 08:32; Admin Dose 1 PATCH; Start 07/08/17 at 09:00 Zolpidem Tartrate (Ambien) 5 mg HS PRN PO INSOMNIA Last administered on 22:15; Admin Dose 5 MG; Start 07/08/17 at 23:30 Pantoprazole (Protonix Tab) 40 mg BID@06,18 PO Last administered on 07/12/17 05:23; Admin Dose 40 MG; Start 07/11/17 at 06:00 JONNY MORGAN Jul 12, 2017 12:28
--- NOTE | 2017-07-12 13:45 | PN ---
Date/Time of Note Date/Time of Note DATE: 07/12/17 TIME: 11:04 Assessment/Plan Lines/Catheters IV Catheter Type (from [facility]): Saline Lock [facility] in Place (from [facility]): No Assessment/Plan Chief Complaint/Hosp Course 1. Perforated prepyloric gastric anterior ulcer s/p laparoscopic repair of perforated gastric ulcer with Martín patch & gastric ulcer with resection biopsy -ppi -advance diet as [place] -follow path -is -ice pack -ambulate -bigg drain care- unknown output (was not recorded): will likely dc tomorrow 2. PUD, extensive hx; -ppi -stop smoking -stop ASA -regular antacids use 3. Anemia: -monitor -transfuse as needed 4. Hypoalbuminemia with hypocalcemia: multifactorial -optimize nutrition -as above 5. Noncompliance -Highly encouraged to comply with her treatments to avoid further injury 6. Fatty liver -medical management -encourage weight loss and diet/exercise optimization Thank you. Patient seen and examined in collaboration with Dr. Wallace Nielsen. Problems: Subjective 24 Hr Interval Summary Feels well. Tolerating diet. Drain w serous fluid. No fevers, chills, sob, congested cough, cp, palpitations, akhtar, dizziness, n/v/d/dysuria. Exam/Review of Systems Vital Signs Vitals Vital Signs Date Time Temp Pulse Resp B/P Pulse Ox O2 Delivery O2 Flow Rate FiO2 07/12/17 07:24 98.1 62 20 166/69 96 Intake and Output 07/11/17 07/11/17 07/12/17 15:00 23:00 07:00 Intake Total 50 ml 1600 ml 440 ml Output Total 20 ml Balance 50 ml 1580 ml 440 ml Exam Free Text/Dictation Constitutional: alert, oriented, No distress Psych: anxiety, No confusion Head: atraumatic, normocephalic Eyes: EOMI, PERRL, nl conjunctiva, No icteric ENMT: nl external ears & nose, nl lips & teeth No mucosa pink and moist Neck: non-tender, supple, No jvd Respiratory: normal air movement, No congested cough, No diminished breath sounds, No labored breathing Cardiovascular: regular rate and rhythm, No edema Gastrointestinal: non distended, no rebound or guarding, Bigg drain-serous output , incision sites dry without drainage/bruising/discoloration, improved tenderness Musculoskeletal: nl extremities to inspection, nl gait and stance, No joint tenderness Extremities: No calf tenderness, No cyanosis Neurological: nl mental status, nl speech, nl strength Skin: nl turgor, No diaphoresis, No rash or lesions Lymph: nl lymph nodes Results Result Diagram: 07/12/1742907/12/17429 JACKLYN TORO NP Jul 12, 2017 13:45
[2017-07-12 14:46] VITALS: BP 133/63; RESP 20
[2017-07-12] MEDS: HYDROmorphONE 0.5 MG/0.5 ML SYG IV PRN ×2 (16:14→21:15)
[2017-07-12 19:56] VITALS: BP 129/59; RESP 20
[2017-07-13] MEDS: ACETAMINOPHEN 1000MG/100ML IV 100 ML IVPB SCH ×3 (01:49→14:30)
[2017-07-13 01:53] VITALS: BP 122/70; PULSE 64; RESP 18
[2017-07-13 02:22] VITALS: BP 119/62; RESP 19
[2017-07-13 05:21] LABS: BASOPHIL # 0.1 10^3/ul (0.0-0.1); BASOPHILS % 0.8 % (0.0-2.0); EOSINOPHILS # 0.3 10^3/ul (0.0-0.5); EOSINOPHILS % 4.5 % (0.0-7.0); HEMATOCRIT 31.7 % (37.0-47.0); HEMOGLOBIN 10.6 g/dl (12.0-16.0); LYMPHOCYTES # 1.4 10^3/ul (0.8-2.9); LYMPHOCYTES % 22.2 % (15.0-51.0); MEAN CORPUSCULAR HEMOGLOBIN 31.5 pg (29.0-33.0); MEAN CORPUSCULAR HGB CONC 33.4 g/dl (32.0-37.0); MEAN CORPUSCULAR VOLUME 94.1 fl (82.0-101.0); MEAN PLATELET VOLUME 8.7 fl (7.4-10.4); MONOCYTE # 0.7 10^3/ul (0.3-0.9); MONOCYTES % 11.7 % (0.0-11.0); NEUTROPHIL # 3.7 10^3/ul (1.6-7.5); NEUTROPHILS % 60.6 % (39.0-77.0); PLATELET COUNT 374 10^3/UL (140-415); RED BLOOD COUNT 3.37 10^6/ul (4.20-5.40); WHITE BLOOD COUNT 6.2 10^3/ul (4.8-10.8)
[2017-07-13] MEDS: PANTOPRAZOLE (EC) 40 MG TAB PO SCH (05:40)
[2017-07-13] MEDS: PIPER-TAZO 3.375 GM IV (PMX) 50 ML IVPB SCH ×2 (05:41→14:00)
[2017-07-13 05:46] LABS: CALCIUM 9.2 mg/dl (8.4-10.2); CREATININE 0.61 mg/dl (0.44-1.00); MAGNESIUM 1.7 mg/dl (1.7-2.5); POTASSIUM 3.9 mmol/L (3.5-5.1)
[2017-07-13 07:27] VITALS: BP 148/67; RESP 18
[2017-07-13] MEDS: NICOTINE (14 MG/24 HR) PATCH TRANSDERM SCH (08:39)
[2017-07-13] MEDS: ENOXAPARIN 30 MG/0.3 ML SYG SC SCH (09:04)
--- NOTE | 2017-07-13 13:20 | PN ---
Date/Time of Note Date/Time of Note DATE: 07/13/17 TIME: 13:16 Assessment/Plan Lines/Catheters IV Catheter Type (from [facility]): Saline Lock [place] in Place (from [facility]): No Assessment/Plan Chief Complaint/Hosp Course 1. Perforated prepyloric gastric anterior ulcer s/p laparoscopic repair of perforated gastric ulcer with Martín patch & gastric ulcer with resection biopsy -ppi -follow path -is -ice pack -ambulate -may be discharged per medical team. To follow in office in 1-2 weeks. 2. PUD, extensive hx; -ppi -stop smoking -stop ASA -regular antacids use 3. Anemia: -monitor -transfuse as needed 4. Hypoalbuminemia with hypocalcemia: multifactorial -optimize nutrition -as above 5. Noncompliance -Highly encouraged to comply with her treatments to avoid further injury 6. Fatty liver -medical management -encourage weight loss and diet/exercise optimization Thank you. Patient seen and examined in collaboration with Dr. Wallace Nielsen. Problems: Subjective 24 Hr Interval Summary FREDIS dc'd today. Feeling well. No fevers, chills, sob, congested cough, cp, palpitations, akhtar, dizziness, n/v/d/dysuria. Exam/Review of Systems Vital Signs Vitals Vital Signs Date Time Temp Pulse Resp B/P Pulse Ox O2 Delivery O2 Flow Rate FiO2 07/13/17 07:27 98.7 59 18 148/67 95 07/13/17 01:53 Room Air Intake and Output 07/12/17 07/12/17 07/13/17 15:00 23:00 07:00 Intake Total 250 ml 750 ml 1450 ml Output Total 25 ml 1475 ml Balance 250 ml 725 ml -25 ml Exam Free Text/Dictation Constitutional: alert, oriented, No distress Psych: anxiety, No confusion Head: atraumatic, normocephalic Eyes: EOMI, PERRL, nl conjunctiva, No icteric ENMT: nl external ears & nose, nl lips & teeth No mucosa pink and moist Neck: non-tender, supple, No jvd Respiratory: normal air movement, No congested cough, No diminished breath sounds, No labored breathing Cardiovascular: regular rate and rhythm, No edema Gastrointestinal: non distended, no rebound or guarding, incision sites dry without drainage/bruising/discoloration, improved tenderness Musculoskeletal: nl extremities to inspection, nl gait and stance, No joint tenderness Extremities: No calf tenderness, No cyanosis Neurological: nl mental status, nl speech, nl strength Skin: nl turgor, No diaphoresis, No rash or lesions Lymph: nl lymph nodes Results Result Diagram: 07/13/17 0448 07/13/17 0448 JACKLYN TORO NP Jul 13, 2017 13:20
--- NOTE | 2017-07-13 13:50 | PDOCDIS ---
Discharge Instructions CONDITION Patient Condition: Good HOME CARE INSTRUCTIONS: Diet Instructions: RegularSpecial Diet: DIET ADVANCED TO REG ACTIVITY: Activity Restrictions: Slowly Increase Activity Rest between Activity Avoid heavy lifting Do not Drive Avoid Heavy Housework Bathing Restrictions: Shower FOLLOW UP/APPOINTMENTS Follow-up Plan F/U WITH YOUR PCP AND DR LAWLER IN 1-2 WEEKS JONNY MORGAN Jul 13, 2017 13:50
[2017-07-13] MEDS ORDERED: PANT40TA4 PO (14:21)
[2017-07-13] MEDS ORDERED: HYDR-906 PO (14:21)
[2017-07-13 14:38] VITALS: BP 143/70; RESP 18
--- NOTE | 2017-07-14 18:30 | DS ---
Date/Time of Note Date/Time of Note DATE: 07/14/17 TIME: 18:25 Discharge Summary Admission/Discharge Info Admit Date/Time Jul 06, 2017 at 20:16 Discharge Date/Time Jul 13, 2017 at 15:48 Discharge Diagnosis 1. Pneumoperitoneum from perforated ulcer: - s/p surgical repair 07/07 -> omar patch + biopsy. Upper GI series 07/09 shows no leak -s/p IV zosyn -DC with double dose PPI -Patient advised to avoid NSAIDs -FREDIS drain removed 2. PUD: - PPI - Advised against NSAIDs permanently 3. MARIAM: - Resolved with fluids 4. Tobacco use d/o: - Counseled to stop smoking 5. Homelessness Will be discharged to a half-way Patient Condition: Good Hospital Course Patient is a 62 yo female presenting with PUD presented with abdominal pain, pt has history of large gastric ulcer diagnosed via EGD, on arrival patient underwent CT scan that showed pneumoperitoneum surrounding stomach, Dr Lawler from surgery to patient to the OR for surgical repair. Patient did have drain in place and ultimately was removed. Patient was given antibiotics, patient was advised to avoid NSAIDs and was told to be compliant with her PPI. Patient diet was advanced and she was ultimately felt to be stable for discharge to homeless half-way. On the of discharge patient vitals, labs and physical exam are stable she no acute complaints questions answered Home Meds Active Scripts Hydrocodone/Acetaminophen (Jordan 5-325 Tablet) 1 Each Tablet, 1 EACH PO Q4 for PAIN, #20 TAB Prov:JONNY MORGAN 07/13/17 Pantoprazole* (Pantoprazole*) 40 Mg Tablet., 40 MG PO BID@0600,1800, #60 TAB 1 Refill Prov:JONNY MORGAN 07/13/17 Discontinued Reported Medications Aspirin* (Aspirin* EC) 325 Mg Tab, 325 MG PO DAILY, TAB 07/06/17 Follow-up Plan F/U WITH YOUR PCP AND DR LAWLER IN 1-2 WEEKS Primary Care Provider Jeanne Stauffer Time spent on discharge: > 30 minutes JONNY MORGAN Jul 14, 2017 18:30
== END 2017-07-13 15:48 | disposition home or self-care (01) | DRG 330 ==
LOC: E/R 14:10 → TEL 20:16 → MS1 07-12 02:14
PROVIDERS: ADMIT Internal Medicine; ATTEND Internal Medicine
PROC: 0FB04ZX Excision of Liver, Percutaneous Endoscopic Approach, Diagnostic (ICD-10-PCS; 2017-07-06)
PROC: 0DB64ZX Excision of Stomach, Percutaneous Endoscopic Approach, Diagnostic (ICD-10-PCS; 2017-07-06)
PROC: 0DU947Z Supplement Duodenum with Autologous Tissue Substitute, Percutaneous Endoscopic Approach (ICD-10-PCS; principal; 2017-07-06 17:00)
DX: K25.5 Chronic or unspecified gastric ulcer with perforation (principal); N17.9 Acute kidney failure, unspecified; K66.8 Other specified disorders of peritoneum; E88.09 Other disorders of plasma-protein metabolism, not elsewhere classified; E83.51 Hypocalcemia; D47.3 Essential (hemorrhagic) thrombocythemia; Z91.14 Patient's other noncompliance with medication regimen; Z59.0 Homelessness; F17.210 Nicotine dependence, cigarettes, uncomplicated; D64.9 Anemia, unspecified; K76.0 Fatty (change of) liver, not elsewhere classified
CPT/HCPCS: 36415; 74010; 74177; 74240; 80048; 80053; 81001; 83690; 83735; 84100; 84484; 85025; 85610; 85730; 86674; 87045; 87075; 87081; 87086; 87177; 88305; 88307; 90686; 93005; 96374; 96375; 96376; 97163; C9113; J0131; J1170; J1335; J1450; J1650; J2250; J2405; J2543; J3010; J3480; J7030; J7042; Q9967